=== PATIENT | male | born 1960 | race Caucasian/White ===

== ENCOUNTER 2019-05-28 08:37 | Inpatient (IN) | payer MEDICARE, MEDICAID ==
[~2019-05-28] VITALS: Ht 180.3 cm; Wt 111.7 kg
[~2019-05-28 08:37] MED LIST: ACET500T68 PO; AMOX1TAB11 PO; DULO30CA2 PO; Fluconazole PO; IBUP-1670 PO; INSU100V8 SQ; LACT1CAP19 PO; LINE600T12 PO
--- NOTE | 2019-05-28 09:12 | PHYS DOC ---
Past Medical History Past Medical History: Diabetes-Type II, Hypertension Additional Past Medical Histor: TBI 2014, L5 L4 S1 FUSION-2003 Past Surgical History: Other Additional Past Surgical Histo: R toes amputated, L great toe amputated, Lap Florentino, craniotomy, spinal fus Smoking Status: Never Smoker Alcohol Use: None Adult General Chief Complaint Chief Complaint: FOOT INJURY PAIN HPI HPI Patient is a 58 year old male who presents with was admitted here on 05/03/19 for cellulitis to the left 2nd toe and discharged on 05/06/19. Patient states over the last week the Left 2nd toe has gotten swollen, tender and the redness has increased. Patient rates his pain a 8/10. He has a history of HTN and is supposed to be taking Lisinopril but is not taking it. He also has a history of diabetes. He has all right toes amputated and the left great toe amputated. Review of Systems Review of Systems Integument: Left 2nd toe redness and swelling. Denies rash or skin lesions [] All other systems were reviewed and found to be within normal limits, except as documented in this note. Current Medications Current Medications Current Medications Medications (Trade) Dose Ordered Sig/Jose Start Time Stop Time Status Last Admin Dose Admin Ceftriaxone Sodium (Rocephin) 1 gm 1X ONCE 05/28/19 10:00 05/28/19 10:01 Fentanyl Citrate (Fentanyl 2ml Vial) 50 mcg 1X ONCE 05/28/19 09:30 05/28/19 09:31 DC 05/28/19 09:22 50 MCG Sodium Chloride 1,000 ml @ 1,000 mls/hr 1X ONCE 05/28/19 09:30 05/28/19 10:29 05/28/19 09:21 1,000 MLS/HR Vancomycin HCl (Vanco Per Pharmacy) 1 each PRN DAILY PRN 05/28/19 10:00 Vancomycin HCl 1.75 gm/Sodium Chloride 500 ml @ 250 mls/hr 1X ONCE 05/28/19 10:00 05/28/19 11:59 Allergies Allergies Allergies Coded Allergies Type Severity Reaction Last Updated Verified No Known Drug Allergies 05/03/19 No Physical Exam Physical Exam Constitutional: Well developed, well nourished, no acute distress, non-toxic appearance. [] HENT: Normocephalic, atraumatic, bilateral external ears normal, oropharynx moist, no oral exudates, nose normal. [] Eyes: PERRLA, EOMI, conjunctiva normal, no discharge. [] Neck: Normal range of motion, no tenderness, supple, no stridor. [] Cardiovascular:Heart rate regular rhythm, no murmur [] Lungs & Thorax: Bilateral breath sounds clear to auscultation [] Abdomen: Bowel sounds normal, soft, no tenderness, no masses, no pulsatile masses. [] Skin: Warm, dry. Left 2nd toe erythema, no rash. [] Back: No tenderness, no CVA tenderness. [] Extremities: Left 2nd toe tenderness, no cyanosis, no clubbing, ROM intact,Left foot 2+, Left 2nd toe 2+ edema. [] Neurologic: Alert and oriented X 3, normal motor function, normal sensory function, no focal deficits noted. [] Psychologic: Affect normal, judgement normal, mood normal. [] Current Patient Data Vital Signs Vital Signs Date Time Temp Pulse Resp B/P (MAP) Pulse Ox O2 Delivery O2 Flow Rate FiO2 05/28/19 09:22 16 05/28/19 08:54 98.8 78 183/83 (116) 97 Room Air 98.8 Lab Values Laboratory Tests Test 05/28/19 09:18 White Blood Count 7.0 x10^3/uL (4.0-11.0) Red Blood Count 5.13 x10^6/uL (4.30-5.70) Hemoglobin 14.4 g/dL (13.0-17.5) Hematocrit 42.9 % (39.0-53.0) Mean Corpuscular Volume 84 fL (79-100) Mean Corpuscular Hemoglobin 28 pg (25-35) Mean Corpuscular Hemoglobin Concent 34 g/dL (31-37) Red Cell Distribution Width 15.7 % (11.5-14.5) H Platelet Count 176 x10^3/uL (140-400) Neutrophils (%) (Auto) 58 % (31-73) Lymphocytes (%) (Auto) 32 % (24-48) Monocytes (%) (Auto) 9 % (0-9) Eosinophils (%) (Auto) 1 % (0-3) Basophils (%) (Auto) 1 % (0-3) Neutrophils # (Auto) 4.1 x10^3/uL (1.8-7.7) Lymphocytes # (Auto) 2.2 x10^3/uL (1.0-4.8) Monocytes # (Auto) 0.6 x10^3/uL (0.0-1.1) Eosinophils # (Auto) 0.1 x10^3/uL (0.0-0.7) Basophils # (Auto) 0.1 x10^3/uL (0.0-0.2) Sodium Level 137 mmol/L (136-145) Potassium Level 3.9 mmol/L (3.5-5.1) Chloride Level 102 mmol/L (98-107) Carbon Dioxide Level 25 mmol/L (21-32) Anion Gap 10 (6-14) Blood Urea Nitrogen 21 mg/dL (8-26) Creatinine 1.1 mg/dL (0.7-1.3) Estimated GFR (Cockcroft-Gault) 69.0 BUN/Creatinine Ratio 19 (6-20) Glucose Level 163 mg/dL (70-99) H Calcium Level 8.7 mg/dL (8.5-10.1) Total Bilirubin Pending Aspartate Amino Transferase (AST) Pending Alanine Aminotransferase (ALT) Pending Alkaline Phosphatase Pending Total Protein Pending Albumin Pending Albumin/Globulin Ratio Pending Laboratory Tests 05/28/19 09:18 Laboratory Tests 05/28/19 09:18 EKG EKG [] Radiology/Procedures Radiology/Procedures [] Impressions: [facility] [address] [place], [place] [id number] IMAGING REPORT Signed PATIENT: LALITHA CASTELLON ACCOUNT: [id number] : 1960 LOCATION: ER AGE: 58 SEX: M EXAM STATUS: REG ER ORD. PHYSICIAN: DEB GILES APRN REASON: left 2nd to swelling and cellulitis PROCEDURE: FOOT LEFT 3V Study: FOOT LEFT 3V Indication: Swelling and cellulitis. Comparison: 05/03/2019 Findings: Redemonstrated second MTP joint dislocation with dorsal and proximal displacement of the second toe phalanges relative to the metatarsal. The degree of phalangeal displacement has slightly progressed. More pronounced deformity at the second through fourth metatarsal heads as well as development of periosteal new bone formation involving the second toe proximal phalanx, second metatarsal and third metatarsal and to a lesser degree the fourth metatarsal. Redemonstrated mineralization adjacent to the head of the first metatarsal in the setting of great toe phalangeal amputation. Edematous soft tissues throughout the foot and extending up the lower leg that has in general progressed. Irregular lucencies in regions of the distal forefoot could represent ulcerative change. Impression: 1. Worsened appearance of the foot from 05/03/2019 with manifestations of osteomyelitis involving the second toe proximal phalanx and second through fourth metatarsals. This includes periosteal new bone formation and osseous destruction at the second through fourth metatarsal heads. 2. Slightly more pronounced degree of dorsal/proximal dislocation across the second MTP joint. 3. Status post great toe phalangeal amputation without radiographic findings of osteomyelitis of the first metatarsal. 4. Edematous soft tissues throughout the foot and extending up the lower leg. Potential superimposed regions of ulceration such as at the distal forefoot. Electronically signed by: BRIANNA WOOD MD (05/28/2019 9:32 AM) [facility] [place] and SIGNED BY: BRIANNA WOOD MD DATE: 05/28/19 0932 Course & Med Decision Making Course & Med Decision Making Pertinent Labs and Imaging studies reviewed. (See chart for details) Patient denies fever, nausea, vomiting, abdominal pain, headache, dizziness, chest pain, soa, new numbness or tingling, vision changes, diarrhea. Alert and oriented. Speaks in full clear sentences. Left 2nd toe is 2+ swollen and red. No open sore. The foot itself is 2+ swollen but normal skin color. Pedal pulse strong and present. Patient to be readmitted for worsening of conditioning as explained below in Xray read. Impression: 1. Worsened appearance of the foot from 05/03/2019 with manifestations of osteomyelitis involving the second toe proximal phalanx and second through fourth metatarsals. This includes periosteal new bone formation and osseous destruction at the second through fourth metatarsal heads. 2. Slightly more pronounced degree of dorsal/proximal dislocation across the second MTP joint. 3. Status post great toe phalangeal amputation without radiographic findings of osteomyelitis of the first metatarsal. 4. Edematous soft tissues throughout the foot and extending up the lower leg. Potential superimposed regions of ulceration such as at the distal forefoot. []Patient admitted by Dr Lazaro. Jamel Disclaimer Jamel Disclaimer This electronic medical record was generated, in whole or in part, using a voice recognition dictation system. Departure Departure Impression: Primary Impression: Cellulitis Additional Impression: Osteomyelitis Disposition: 09 ADMITTED INPATIENT Admitting Physician: BONITA Condition: STABLE Referrals: NO PCP (PCP) Problem Qualifiers Primary Impression: Cellulitis Site of cellulitis: extremity Site of cellulitis of extremity: toe Laterality: left Qualified Codes: L03.032 - Cellulitis of left toe Additional Impression: Osteomyelitis Osteomyelitis type: other acute Osteomyelitis location: foot Laterality: left Qualified Codes: M86.172 - Other acute osteomyelitis, left ankle and foot DEB GILES APRN May 28, 2019 09:11
[2019-05-28 09:26] LABS: BASO # 0.1 x10^3/uL (0.0-0.2); BASO % 1 % (0-3); EOS # 0.1 x10^3/uL (0.0-0.7); EOS % 1 % (0-3); HEMATOCRIT 42.9 % (39.0-53.0); HEMOGLOBIN 14.4 g/dL (13.0-17.5); LYMPH # 2.2 x10^3/uL (1.0-4.8); LYMPH % 32 % (24-48); MEAN CORPUSCULAR HEMOGLOBIN 28 pg (25-35); MEAN CORPUSCULAR HGB CONC 34 g/dL (31-37); MEAN CORPUSCULAR VOLUME 84 fL (79-100); MONO # 0.6 x10^3/uL (0.0-1.1); MONO % 9 % (0-9); NEUT # 4.1 x10^3/uL (1.8-7.7); NEUT % 58 % (31-73); PLATELET COUNT 176 x10^3/uL (140-400); RED BLOOD COUNT 5.13 x10^6/uL (4.30-5.70); RED CELL DISTRIBUTION WIDTH 15.7 % (11.5-14.5)
[2019-05-28] MEDS ORDERED: fentaNYL PF VIAL 100 MCG/2 ML VIAL IVP ONE ×2 (09:30→10:30)
[2019-05-28] MEDS ORDERED: IV NORMAL SALINE 1000ML BAG 1,000 ML IV ONE (09:30)
--- NOTE | 2019-05-28 09:35 | RAD ---
Study: FOOT LEFT 3V Indication: Swelling and cellulitis. Comparison: 05/03/2019 Findings: Redemonstrated second MTP joint dislocation with dorsal and proximal displacement of the second toe phalanges relative to the metatarsal. The degree of phalangeal displacement has slightly progressed. More pronounced deformity at the second through fourth metatarsal heads as well as development of periosteal new bone formation involving the second toe proximal phalanx, second metatarsal and third metatarsal and to a lesser degree the fourth metatarsal. Redemonstrated mineralization adjacent to the head of the first metatarsal in the setting of great toe phalangeal amputation. Edematous soft tissues throughout the foot and extending up the lower leg that has in general progressed. Irregular lucencies in regions of the distal forefoot could represent ulcerative change. Impression: 1. Worsened appearance of the foot from 05/03/2019 with manifestations of osteomyelitis involving the second toe proximal phalanx and second through fourth metatarsals. This includes periosteal new bone formation and osseous destruction at the second through fourth metatarsal heads. 2. Slightly more pronounced degree of dorsal/proximal dislocation across the second MTP joint. 3. Status post great toe phalangeal amputation without radiographic findings of osteomyelitis of the first metatarsal. 4. Edematous soft tissues throughout the foot and extending up the lower leg. Potential superimposed regions of ulceration such as at the distal forefoot. Electronically signed by: BRIANNA WOOD MD (05/28/2019 9:32 AM) [facility]
[2019-05-28 09:39] LABS: CALCIUM 8.7 mg/dL (8.5-10.1); CREATININE 1.1 mg/dL (0.7-1.3); POTASSIUM 3.9 mmol/L (3.5-5.1)
[2019-05-28 09:55] LABS: ALBUMIN 3.5 g/dL (3.4-5.0); ALBUMIN/GLOBULIN RATIO 0.9 (1.0-1.7); TOTAL BILIRUBIN 0.3 mg/dL (0.2-1.0); TOTAL PROTEIN 7.4 g/dL (6.4-8.2)
[2019-05-28] MEDS ORDERED: VANCOMYCIN 1.75 GM in IV NORMAL SALINE 500ML BAG 500 ML IV ONE (10:00)
[2019-05-28] MEDS ORDERED: cefTRIAXone IV Push 1 GM VIAL. IVP ONE (10:00)
[2019-05-28] MEDS ORDERED: ONDANSETRON PF 4 MG/2 ML VIAL. IV PRN (10:15)
[2019-05-28] MEDS: fentaNYL PF VIAL 100 MCG/2 ML VIAL IV PRN ×3 (11:09→17:36)
[2019-05-28] MEDS: VANCOMYCIN PER PHARMACY MC PRN ×2 (13:25→13:36)
--- NOTE | 2019-05-28 13:38 | NUR ---
Pharmacy Vancomycin Dosing Note S:Consulted to monitor and dose vancomycin started 05/28/19. O:LALITHA CASTELLON is a 58 year old M with Cellulitis Osteomyelitis . Height: 5 feet, 11 inches Weight: 70.0 kg [place] Body Weight: 75.30 Adjusted Body Weight: 73.18 Dosing Weight: Actual Other Antibiotics: X1 dose of Rocephin in ER LABS: Last BUN: 21 Last Creatinine: 1.1 Creatinine Clearance: 73 mL/min Last WBC: 7.0 Last Procalcitonin: Tmax (past 24 hours): 98.8 Microbiology: I/O: Drug Levels: Last level: on at Last dose given 05/28/19 at 0957 Vancomycin Dosing: Loading Dose: 1750 mg x1 Dosing Weight: Actual Target Trough: 15-20 A: Based on weight and est. CrCl: P: 1. Start Vancomycin 1750mg bolus, followed by Vancomycin 1000 mg IV q12h. 2. Follow up Trough level on 05/29/19 at 2130. 3. Pharmacy will continue to monitor, follow and adjust therapy as needed. Ye Chong [facility] [place], 05/28/19 [id number]
--- NOTE | 2019-05-28 13:58 | PDOC2 ---
CONSULT Date of Consult Date of Consult DATE: 05/28/19 TIME: 13:54 Reason for Consult Reason for Consult: Left foot possible osteomyelitis Identification/Chief Complaint Chief Complaint Left foot swelling and redness Source Source: Chart review, Patient History of Present Illness Reason for Visit: This 58-year-old man was admitted to the hospital last month with left foot swelling and erythema. Based on his history previously which I will copy below, I suspected a Charcot foot. He has not yet obtained the [place] walker and said he had difficulty scheduling follow-up with our office so he made an appointment with a different doctor and has not yet had that appointment. Of note he was diagnosed in 2019 with diabetes, and had some underlying neuropathy related to spine surgery. On the right foot, he was living in [place], and had an open wound on the right foot with osteomyelitis, and ultimately required 4 surgeries on the right foot, ultimately having a right trans metatarsal amputation. He said the doctor for that was a female orthopedic surgeon of [place] background, in [place], [place] near [place]. I believe she is also the surgeon who did the left great toe amputation. He relates that the symptoms on the right foot were much different than the current ones on the left foot, and that the left foot has never had an open wound or other dramatic evidence of infection. He was admitted with suspicion of infection and osteomyelitis of multiple metatarsal heads based on x-ray report. My notes from April admission: This 58-year-old man who was admitted to the hospital with left foot swelling and pain. He was diagnosed with type 2 diabetes 4 months ago, and required a left great toe amputation at that time due to osteomyelitis. That surgery was done in [place], but he has recently moved to [place]. He reports neuropathy which predates the diagnosis of diabetes, and he began having lower extremity symptoms and neuropathy problems after lumbar spine fusion surgery in 2003. He reports a work injury in 2002 with spinal damage, and says he had lumbar fusion [id number] in 2003 after which he had some numbness in his feet. The left foot became increasingly swollen and red recently, possible infection, and he was admitted for care. After the discussion with him, and we reviewed the severe neuropathy, I was suspicious of a Charcot foot. I reviewed some photos from [employer] of a Charcot foot with him, and he agrees this seems like a likely source of his swelling redness and other foot symptoms. Past Medical History Cardiovascular: No pertinent hx Pulmonary: No pertinent hx GI: No pertinent hx Heme/Onc: No pertinent hx Hepatobiliary: No pertinent hx Psych: No pertinent hx Rheumatologic: No pertinent hx Infectious disease: No pertinent hx Renal/: No pertinent hx Endocrine: Diabetes Past Surgical History Past Surgical History: Arthroscopy Family History Family History: Diabetes, High Cholestrol, Hypertension Social History ALCOHOL: none Drugs: Heroin Current Problem List Problem List Problems Medical Problems: (1) Cellulitis Status: Acute (2) Osteomyelitis Status: Acute Current Medications Current Medications Current Medications Sodium Chloride 1,000 ml @ 1,000 mls/hr 1X ONCE IV Last administered on 05/28/19at 09:21; Start 05/28/19 at 09:30; Stop 05/28/19 at 10:29; Status DC Fentanyl Citrate (Fentanyl 2ml Vial) 50 mcg 1X ONCE IVP Last administered on 05/28/19at 09:22; Start 05/28/19 at 09:30; Stop 05/28/19 at 09:31; Status DC Vancomycin HCl (Vanco Per Pharmacy) 1 each PRN DAILY PRN MC SEE COMMENTS Last administered on 05/28/19at 13:36; Start 05/28/19 at 10:00 Ceftriaxone Sodium (Rocephin) 1 gm 1X ONCE IVP Last administered on 05/28/19at 09:57; Start 05/28/19 at 10:00; Stop 05/28/19 at 10:01; Status DC Vancomycin HCl 1.75 gm/Sodium Chloride 500 ml @ 250 mls/hr 1X ONCE IV Last administered on 05/28/19at 09:57; Start 05/28/19 at 10:00; Stop 05/28/19 at 11:59; Status DC Fentanyl Citrate (Fentanyl 2ml Vial) 50 mcg 1X ONCE IVP Last administered on 05/28/19at 10:10; Start 05/28/19 at 10:30; Stop 05/28/19 at 10:31; Status DC Ondansetron HCl (Zofran) 4 mg PRN Q8HRS PRN IV NAUSEA/VOMITING Last administered on 05/28/19at 11:09; Start 05/28/19 at 10:15; Stop 05/29/19 at 10:14 Fentanyl Citrate (Fentanyl 2ml Vial) 50 mcg PRN Q1HR PRN IV PAIN Last administered on 05/28/19at 12:44; Start 05/28/19 at 10:15; Stop 05/29/19 at 10:14 Oxycodone/ Acetaminophen (Percocet 10/325) 1 tab PRN Q4HRS PRN PO SEVERE PAIN; Start 05/28/19 at 13:30 Vancomycin HCl 1 gm/Sodium Chloride 250 ml @ 250 mls/hr Q12H IV ; Start 05/28/19 at 22:00 Vancomycin HCl (Vancomycin Trough Level) 1 each 1X ONCE MC ; Start 05/29/19 at 21:30; Stop 05/29/19 at 21:31 Active Scripts Active Lantus (Insulin Glargine,Hum.rec.anlog) 100 Unit/1 Ml Vial 10 Unit SQ QHS 30 Days Culturelle (Lactobacillus Rhamnosus Gg) 1 Each Cap.sprink 1 Cap PO BID 30 Days Cymbalta (Duloxetine Hcl) 30 Mg Capsule.dr 30 Mg PO DAILY 30 Days Acetaminophen 500 Mg Tablet 500 Mg PO PRN Q6HRS PRN 10 Days Ibuprofen 200 Mg Tablet 600 Mg PO PRN Q6HRS PRN 10 Days [Fluconazole] 100 MG Tablet 200 Mg PO DAILY 7 Days Zyvox (Linezolid) 600 Mg Tablet 600 Mg PO BID 7 Days Amox Tr-K Clv 875-125 Mg Tab (Amoxicillin/Potassium Clav) 1 Each Tablet 1 Tab PO BID 10 Days Allergies Allergies: Coded Allergies: No Known Drug Allergies (Unverified , 05/03/19) Physical Exam General: Alert, Cooperative HEENT: Atraumatic Lungs: Normal air movement Heart: Regular rate Abdomen: Soft Extremities: Other (the right foot has a well-healed transmetatarsal amputation with no erythema or drainage. There is a plantar callus with a little bit of eschar but there is no open wound or drainage, and no erythema. He has decreased sensation. On the left foot there is a well-healed great toe amputation. There is no open wound. Minimal erythema. Diffuse swelling of the foot and now some swelling at the ankle. He has nearly insensate foot due to neuropathy and spine injury, such difficult to tell if there is tenderness but he describes general deep ache. The second toe is swollen, consistent with a neuropathic dislocation but there is no sensation of dislocation based on his examination and history. (Most patients with a dislocated toe would have exruciating pain and recall a specific injury--he has neither of those, indicitave of neuorpathic dislocation, i.e. Charcot dislocation). ) Skin: No significant lesion Neuro: Normal speech, Other (severe decreased sensation. Pulses normal. No ischemia. Let foot is warm compared to right.) Psych/Mental Status: Mood NL Vitals VITALS Vital Signs Date Time Temp Pulse Resp B/P (MAP) Pulse Ox O2 Delivery O2 Flow Rate FiO2 05/28/19 12:44 95 05/28/19 11:35 16 05/28/19 11:10 67 165/80 (108) 05/28/19 10:09 Room Air 05/28/19 08:54 98.8 98.8 Labs Labs Laboratory Tests Test 05/28/19 09:18 05/28/19 11:58 White Blood Count 7.0 x10^3/uL (4.0-11.0) Red Blood Count 5.13 x10^6/uL (4.30-5.70) Hemoglobin 14.4 g/dL (13.0-17.5) Hematocrit 42.9 % (39.0-53.0) Mean Corpuscular Volume 84 fL (79-100) Mean Corpuscular Hemoglobin 28 pg (25-35) Mean Corpuscular Hemoglobin Concent 34 g/dL (31-37) Red Cell Distribution Width 15.7 % (11.5-14.5) Platelet Count 176 x10^3/uL (140-400) Neutrophils (%) (Auto) 58 % (31-73) Lymphocytes (%) (Auto) 32 % (24-48) Monocytes (%) (Auto) 9 % (0-9) Eosinophils (%) (Auto) 1 % (0-3) Basophils (%) (Auto) 1 % (0-3) Neutrophils # (Auto) 4.1 x10^3/uL (1.8-7.7) Lymphocytes # (Auto) 2.2 x10^3/uL (1.0-4.8) Monocytes # (Auto) 0.6 x10^3/uL (0.0-1.1) Eosinophils # (Auto) 0.1 x10^3/uL (0.0-0.7) Basophils # (Auto) 0.1 x10^3/uL (0.0-0.2) Sodium Level 137 mmol/L (136-145) Potassium Level 3.9 mmol/L (3.5-5.1) Chloride Level 102 mmol/L (98-107) Carbon Dioxide Level 25 mmol/L (21-32) Anion Gap 10 (6-14) Blood Urea Nitrogen 21 mg/dL (8-26) Creatinine 1.1 mg/dL (0.7-1.3) Estimated GFR (Cockcroft-Gault) 69.0 BUN/Creatinine Ratio 19 (6-20) Glucose Level 163 mg/dL (70-99) Lactic Acid Level 1.5 mmol/L (0.4-2.0) Calcium Level 8.7 mg/dL (8.5-10.1) Total Bilirubin 0.3 mg/dL (0.2-1.0) Aspartate Amino Transf (AST/SGOT) 27 U/L (15-37) Alanine Aminotransferase (ALT/SGPT) 54 U/L (16-63) Alkaline Phosphatase 148 U/L (46-116) Total Protein 7.4 g/dL (6.4-8.2) Albumin 3.5 g/dL (3.4-5.0) Albumin/Globulin Ratio 0.9 (1.0-1.7) Glucose (Fingerstick) 189 mg/dL (70-99) Laboratory Tests Test 05/28/19 09:18 05/28/19 11:58 White Blood Count 7.0 x10^3/uL (4.0-11.0) Red Blood Count 5.13 x10^6/uL (4.30-5.70) Hemoglobin 14.4 g/dL (13.0-17.5) Hematocrit 42.9 % (39.0-53.0) Mean Corpuscular Volume 84 fL (79-100) Mean Corpuscular Hemoglobin 28 pg (25-35) Mean Corpuscular Hemoglobin Concent 34 g/dL (31-37) Red Cell Distribution Width 15.7 % (11.5-14.5) Platelet Count 176 x10^3/uL (140-400) Neutrophils (%) (Auto) 58 % (31-73) Lymphocytes (%) (Auto) 32 % (24-48) Monocytes (%) (Auto) 9 % (0-9) Eosinophils (%) (Auto) 1 % (0-3) Basophils (%) (Auto) 1 % (0-3) Neutrophils # (Auto) 4.1 x10^3/uL (1.8-7.7) Lymphocytes # (Auto) 2.2 x10^3/uL (1.0-4.8) Monocytes # (Auto) 0.6 x10^3/uL (0.0-1.1) Eosinophils # (Auto) 0.1 x10^3/uL (0.0-0.7) Basophils # (Auto) 0.1 x10^3/uL (0.0-0.2) Sodium Level 137 mmol/L (136-145) Potassium Level 3.9 mmol/L (3.5-5.1) Chloride Level 102 mmol/L (98-107) Carbon Dioxide Level 25 mmol/L (21-32) Anion Gap 10 (6-14) Blood Urea Nitrogen 21 mg/dL (8-26) Creatinine 1.1 mg/dL (0.7-1.3) Estimated GFR (Cockcroft-Gault) 69.0 BUN/Creatinine Ratio 19 (6-20) Glucose Level 163 mg/dL (70-99) Lactic Acid Level 1.5 mmol/L (0.4-2.0) Calcium Level 8.7 mg/dL (8.5-10.1) Total Bilirubin 0.3 mg/dL (0.2-1.0) Aspartate Amino Transf (AST/SGOT) 27 U/L (15-37) Alanine Aminotransferase (ALT/SGPT) 54 U/L (16-63) Alkaline Phosphatase 148 U/L (46-116) Total Protein 7.4 g/dL (6.4-8.2) Albumin 3.5 g/dL (3.4-5.0) Albumin/Globulin Ratio 0.9 (1.0-1.7) Glucose (Fingerstick) 189 mg/dL (70-99) Images Images Report reviewed, images independently reviewed. I agree there are some differences in bone density of the metatarsals compared to last month. The discocated 2nd MTPJ persists. PATIENT: LALITHA CASTELLON ACCOUNT: [id number] : 1960 LOCATION: ER AGE: 58 SEX: M EXAM STATUS: REG ER ORD. PHYSICIAN: DEB GILES APRN REASON: left 2nd to swelling and cellulitis PROCEDURE: FOOT LEFT 3V Study: FOOT LEFT 3V Indication: Swelling and cellulitis. Comparison: 05/03/2019 Findings: Redemonstrated second MTP joint dislocation with dorsal and proximal displacement of the second toe phalanges relative to the metatarsal. The degree of phalangeal displacement has slightly progressed. More pronounced deformity at the second through fourth metatarsal heads as well as development of periosteal new bone formation involving the second toe proximal phalanx, second metatarsal and third metatarsal and to a lesser degree the fourth metatarsal. Redemonstrated mineralization adjacent to the head of the first metatarsal in the setting of great toe phalangeal amputation. Edematous soft tissues throughout the foot and extending up the lower leg that has in general progressed. Irregular lucencies in regions of the distal forefoot could represent ulcerative change. Impression: 1. Worsened appearance of the foot from 05/03/2019 with manifestations of osteomyelitis involving the second toe proximal phalanx and second through fourth metatarsals. This includes periosteal new bone formation and osseous destruction at the second through fourth metatarsal heads. 2. Slightly more pronounced degree of dorsal/proximal dislocation across the second MTP joint. 3. Status post great toe phalangeal amputation without radiographic findings of osteomyelitis of the first metatarsal. 4. Edematous soft tissues throughout the foot and extending up the lower leg. Potential superimposed regions of ulceration such as at the distal forefoot. Electronically signed by: BRIANNA WOOD MD (05/28/2019 9:32 AM) [facility] DICTATED and SIGNED BY: BRIANNA WOOD MD DATE: 05/28/19 0932 Assessment/Plan Assessment/Plan Left foot swelling. Radiographs suspicious for osteomyelitis. My impression is that he has a Charcot foot without osteomyelitis. This is his second admission for this same left foot problem. I recommended MRI left foot with and without IV contrast. I reviewed his case with Dr. Mensah who related that an MRI w/wo IV contrast would be helpful to differentiate osteomyelitis from Charcot foot. If the patient has osteomyelitis in the metatarsal heads I would consider a forefoot transmetatarsal amputation. If there is no osteomyelitis, nonoperative treatment is recommended with [place] walker, and other supportive care. I will also order CRP and ESR which are likely to be elevated with either diagnosis but the amount of elevation may indicate one diagnoses over the other. KIAH HIGUERA MD May 28, 2019 13:58
[2019-05-28] MEDS: oxyCODONE/APAP 10/325 1 TAB TABLET PO PRN ×2 (14:28→19:38)
[2019-05-28 15:00] VITALS: BP 145/63
[2019-05-28] MEDS ORDERED: LISI2.5T PO (15:07)
--- NOTE | 2019-05-28 16:10 | PDOC ---
Infectious Disease Note Vital Sign Vital Signs Vital Signs Date Time Temp Pulse Resp B/P (MAP) Pulse Ox O2 Delivery O2 Flow Rate FiO2 05/28/19 14:29 95 05/28/19 11:35 16 05/28/19 11:10 67 165/80 (108) 05/28/19 10:09 Room Air 05/28/19 08:54 98.8 98.8 Labs Lab Laboratory Tests Test 05/28/19 09:18 05/28/19 11:58 White Blood Count 7.0 x10^3/uL (4.0-11.0) Red Blood Count 5.13 x10^6/uL (4.30-5.70) Hemoglobin 14.4 g/dL (13.0-17.5) Hematocrit 42.9 % (39.0-53.0) Mean Corpuscular Volume 84 fL (79-100) Mean Corpuscular Hemoglobin 28 pg (25-35) Mean Corpuscular Hemoglobin Concent 34 g/dL (31-37) Red Cell Distribution Width 15.7 % (11.5-14.5) Platelet Count 176 x10^3/uL (140-400) Neutrophils (%) (Auto) 58 % (31-73) Lymphocytes (%) (Auto) 32 % (24-48) Monocytes (%) (Auto) 9 % (0-9) Eosinophils (%) (Auto) 1 % (0-3) Basophils (%) (Auto) 1 % (0-3) Neutrophils # (Auto) 4.1 x10^3/uL (1.8-7.7) Lymphocytes # (Auto) 2.2 x10^3/uL (1.0-4.8) Monocytes # (Auto) 0.6 x10^3/uL (0.0-1.1) Eosinophils # (Auto) 0.1 x10^3/uL (0.0-0.7) Basophils # (Auto) 0.1 x10^3/uL (0.0-0.2) Sodium Level 137 mmol/L (136-145) Potassium Level 3.9 mmol/L (3.5-5.1) Chloride Level 102 mmol/L (98-107) Carbon Dioxide Level 25 mmol/L (21-32) Anion Gap 10 (6-14) Blood Urea Nitrogen 21 mg/dL (8-26) Creatinine 1.1 mg/dL (0.7-1.3) Estimated GFR (Cockcroft-Gault) 69.0 BUN/Creatinine Ratio 19 (6-20) Glucose Level 163 mg/dL (70-99) Lactic Acid Level 1.5 mmol/L (0.4-2.0) Calcium Level 8.7 mg/dL (8.5-10.1) Total Bilirubin 0.3 mg/dL (0.2-1.0) Aspartate Amino Transf (AST/SGOT) 27 U/L (15-37) Alanine Aminotransferase (ALT/SGPT) 54 U/L (16-63) Alkaline Phosphatase 148 U/L (46-116) Total Protein 7.4 g/dL (6.4-8.2) Albumin 3.5 g/dL (3.4-5.0) Albumin/Globulin Ratio 0.9 (1.0-1.7) Glucose (Fingerstick) 189 mg/dL (70-99) Objective Assessment Cellulitis left 2nd toe Charcot foot Nonhealing ulcer right foot Diabetes with peripheral neuropathy h/o MRSA Plan Plan of Care Continue antibiotics Monitor renal function closely f/u [facility] Ortho following MRI has been ordered left foot Local wound care right foot ESR D/w nursing D/w Dr. Vaughn Thank you [id number] Patient seen and examined. Chart reviewed in detail. Case discussed with [employer]. I agree with above plan. ELOINA CALDWELL APRN May 28, 2019 16:10 ANETA LAL MD May 28, 2019 19:20
--- NOTE | 2019-05-28 17:31 | CONS ---
DATE OF CONSULTATION: 05/28/2019 REFERRING PHYSICIAN: Gregorio Vaughn MD REASON FOR CONSULTATION: Osteomyelitis, left foot. HISTORY OF PRESENT ILLNESS: This patient is a 58-year-old male with a past medical history of diabetes, nonhealing foot ulcers and osteomyelitis, status post right transmetatarsal amputation and left great toe amputation in the past. Over the last month and a half, he has developed worsening pain, swelling and redness of left second toe. He has been unable to wear shoes. He denies injury. Denies fevers, chills, sweats or body aches. He was hospitalized last month here at [facility] for similar symptoms involving the left third toe. He was treated with Augmentin, fluconazole and Zyvox with improvement. An arterial duplex showed normal sonographic appearance of the major arteries of the left lower extremity. He was seen by Ortho service, who had recommended a [employer] [place] walker, but the patient says he has not gotten one yet. An x-ray of the left foot taken earlier today showed worsening appearance of the foot from 05/03 with manifestations of osteomyelitis involving the second toe proximal phalanx and second through fourth metatarsals. This includes periosteal new bone formation and osseous destruction at the second through fourth metatarsal heads. Slightly more pronounced degree of dorsal/proximal dislocation across the second MTP joint. Edematous soft tissues throughout the foot and extending at the lower leg. The patient has no open wounds on his left foot and a recent sed rate was 3 on 05/03. He is currently on vancomycin and ceftriaxone. PAST MEDICAL HISTORY: Diabetes, previous history of osteomyelitis of left great toe and several toes on his right foot, peripheral neuropathy, history of MRSA. PAST SURGICAL HISTORY: Subdural hematoma and craniotomy in 2013, L4-L5 fusion in 2004; Florentino fundoplication, right TMA in 2019, left great toe amputation, arthroscopy. FAMILY HISTORY: Diabetes, hyperlipidemia and hypertension. SOCIAL HISTORY: Lives in [place] for about 9 years and has moved back to [place] in 02/2019. History of IV drug use and alcohol abuse. Nonsmoker. ALLERGIES: No known drug allergies. MEDICATIONS: Vancomycin, ceftriaxone, fentanyl, ondansetron, Percocet. PHYSICAL EXAMINATION: VITAL SIGNS: Temperature 98.8, blood pressure 165/80, heart rate 67, respiratory rate 16 and pulse oximetry 95% on room air. BMI 21. GENERAL: The patient is propped up in bed, alert, no apparent distress. HEENT: Pupils equally round, oral cavity, pharynx clear. NECK: Supple. LUNGS: Clear to auscultation. HEART: S1, S2. ABDOMEN: Soft, nontender with bowel sounds present. EXTREMITIES: No gross edema or cyanosis. Previous right TMA. There is a small ulcer on the plantar aspect without signs of infection. The left second toe is swollen, mildly red. There are no open wounds. Distal pulses palpable. The third toenail is a dark. Previous left great toe amputation site is well healed. SKIN: Warm to touch without signs of rash. Multiple tattoos. NEUROLOGIC: Alert and oriented x 3. LABORATORY DATA: Today's WBC 7.0, hemoglobin 14.4, platelets 176,000. Previous sed rate from 05/03 was 3, creatinine 1.1, BUN 21. Electrolytes are unremarkable. Glucose 163. Lactic acid 1.5, total bilirubin 0.3, AST 27 and ALT 54. ASSESSMENT: 1. Cellulitis, left second toe. 2. Charcot's foot. 3. Nonhealing ulcer, right foot. 4. Diabetes with peripheral neuropathy. 5. History of methicillin-resistant Staphylococcus. PLAN: Continue the antibiotics for now. Ortho is following. An MRI has been ordered. Local wound care. Obtain sed rate in a.m. Follow up on blood cultures. Monitor renal function closely. Discussed with nursing. ANETA LAL MD DR: ANN/marquis JOB#: [id number] / [id number] KARINA
--- NOTE | 2019-05-28 18:26 | PDOC1 ---
History and Physical Date of Admission Date of Admission DATE: 05/28/19 TIME: 18:24 History of Present Illness History of Present Illness Patient is a 58 year old male who presents with was admitted here on 05/03/19 for cellulitis to the left 2nd toe and discharged on 05/06/19. Patient states over the last week the Left 2nd toe has gotten swollen, tender and the redness has increased. Patient rates his pain a 8/10. He has a history of HTN and is supposed to be taking Lisinopril but is not taking it. He also has a history of diabetes. He has all right toes amputated and the left great toe amputated. Past Medical History Cardiovascular: No pertinent hx Pulmonary: No pertinent hx GI: No pertinent hx Heme/Onc: No pertinent hx Hepatobiliary: No pertinent hx Psych: No pertinent hx Rheumatologic: No pertinent hx Infectious disease: No pertinent hx Renal/: No pertinent hx Endocrine: Diabetes Past Surgical History Past Surgical History: Arthroscopy Family History Family History: Diabetes, High Cholestrol, Hypertension Social History Smoke: No ALCOHOL: none Drugs: Heroin Current Problem List Problem List Problems Medical Problems: (1) Cellulitis Status: Acute (2) Osteomyelitis Status: Acute Current Medications Current Medications Current Medications Sodium Chloride 1,000 ml @ 1,000 mls/hr 1X ONCE IV Last administered on 05/28/19at 09:21; Start 05/28/19 at 09:30; Stop 05/28/19 at 10:29; Status DC Fentanyl Citrate (Fentanyl 2ml Vial) 50 mcg 1X ONCE IVP Last administered on 05/28/19at 09:22; Start 05/28/19 at 09:30; Stop 05/28/19 at 09:31; Status DC Vancomycin HCl (Vanco Per Pharmacy) 1 each PRN DAILY PRN MC SEE COMMENTS Last administered on 05/28/19at 13:36; Start 05/28/19 at 10:00 Ceftriaxone Sodium (Rocephin) 1 gm 1X ONCE IVP Last administered on 05/28/19at 09:57; Start 05/28/19 at 10:00; Stop 05/28/19 at 10:01; Status DC Vancomycin HCl 1.75 gm/Sodium Chloride 500 ml @ 250 mls/hr 1X ONCE IV Last administered on 05/28/19at 09:57; Start 05/28/19 at 10:00; Stop 05/28/19 at 11:59; Status DC Fentanyl Citrate (Fentanyl 2ml Vial) 50 mcg 1X ONCE IVP Last administered on 05/28/19at 10:10; Start 05/28/19 at 10:30; Stop 05/28/19 at 10:31; Status DC Ondansetron HCl (Zofran) 4 mg PRN Q8HRS PRN IV NAUSEA/VOMITING Last administered on 05/28/19at 11:09; Start 05/28/19 at 10:15; Stop 05/29/19 at 10:14 Fentanyl Citrate (Fentanyl 2ml Vial) 50 mcg PRN Q1HR PRN IV PAIN Last administered on 05/28/19at 17:36; Start 05/28/19 at 10:15; Stop 05/29/19 at 10:14 Oxycodone/ Acetaminophen (Percocet 10/325) 1 tab PRN Q4HRS PRN PO SEVERE PAIN Last administered on 05/28/19at 14:28; Start 05/28/19 at 13:30 Vancomycin HCl 1 gm/Sodium Chloride 250 ml @ 250 mls/hr Q12H IV ; Start 05/28/19 at 22:00 Vancomycin HCl (Vancomycin Trough Level) 1 each 1X ONCE MC ; Start 05/29/19 at 21:30; Stop 05/29/19 at 21:31 Active Scripts Active Reported Lisinopril 2.5 Mg Tablet 1 Tab PO DAILY Allergies Allergies: Coded Allergies: No Known Drug Allergies (Unverified , 05/03/19) ROS General: No: Chills, Night Sweats, Fatigue, Malaise, Appetite, Other PSYCHOLOGICAL ROS: No: Anxiety, Behavioral Disorder, Concentration difficultie, Decreased libido, Depression, Disorientation, Hallucinations, Hostility, Irritablity, Memory difficulties, Mood Swings, Obsessive thoughts, Physical abuse, Sexual abuse, Sleep disturbances, Suicidal ideation, Other Eyes: No Blurry vision, No Decreased vision, No Double vision, No Dry eyes, No Excessive tearing, No Eye Pain, No Itchy Eyes, No Loss of vision, No Photophobia, No Scotomata, No Uses contacts, No Uses glasses, No Other HEENT: No: Heacaches, Visual Changes, Hearing change, Nasal congestion, Nasal discharge, Oral lesions, Sinus pain, Sore Throat, Epistaxis, Sneezing, Snoring, Tinnitus, Vertigo, Vocal changes, Other Respiratory: No: Cough, Hemoptysis, Orthopnea, Pleuritic Pain, Shortness of breath, SOB with excertion, Sputum Changes, Stridor, Tachypnea, Wheezing, Other Cardiovascular: No Chest Pain, No Palpitations, No Orthopnea, No Paroxysmal Noc. Dyspnea, No Edema, No Lt Headedness, No Other Gastrointestinal: No Nausea, No Vomiting, No Abdominal Pain, No Diarrhea, No Constipation, No Melena, No Hematochezia, No Other Genitourinary: No Dysuria, No Frequency, No Incontinence, No Hematuria, No Retention, No Discharge, No Urgency, No Pain, No Flank Pain, No Other, No , No , No , No , No , No , No Musculoskeletal: Yes Gait Disturbance, Yes Joint Stiffness, Yes Joint Swelling Neurological: No Behavorial Changes, No Bowel/Bladder ControlChng, No Confusion, No Dizziness, No Headaches, No Impaired Coord/balance, No Memory Loss, No Numbness/Tingling, No Seizures, No Speech Problems, No Tremors, No Visual Changes, No Weakness, No Other Skin: Yes Dry Skin, Yes Rash, Yes Skin Lesion Changes Physical Exam General: Alert, Oriented X3, Cooperative, No acute distress HEENT: Atraumatic, EOMI, Mucous membr. moist/pink Lungs: Clear to auscultation, Normal air movement Heart: no gallops, no murmurs Abdomen: Normal bowel sounds, Soft Extremities: No cyanosis, No edema, Normal pulses Skin: No significant lesion, Other (toe is swollen and red and tender, p) Neuro: Normal speech, Normal tone, Cranial nerves 3-12 NL Vitals Vitals Vital Signs Date Time Temp Pulse Resp B/P (MAP) Pulse Ox O2 Delivery O2 Flow Rate FiO2 05/28/19 17:36 95 05/28/19 15:00 98.1 65 16 145/63 (90) Room Air 98.1 Labs Labs Laboratory Tests Test 05/28/19 09:18 05/28/19 11:58 05/28/19 16:50 White Blood Count 7.0 x10^3/uL (4.0-11.0) Red Blood Count 5.13 x10^6/uL (4.30-5.70) Hemoglobin 14.4 g/dL (13.0-17.5) Hematocrit 42.9 % (39.0-53.0) Mean Corpuscular Volume 84 fL (79-100) Mean Corpuscular Hemoglobin 28 pg (25-35) Mean Corpuscular Hemoglobin Concent 34 g/dL (31-37) Red Cell Distribution Width 15.7 % (11.5-14.5) Platelet Count 176 x10^3/uL (140-400) Neutrophils (%) (Auto) 58 % (31-73) Lymphocytes (%) (Auto) 32 % (24-48) Monocytes (%) (Auto) 9 % (0-9) Eosinophils (%) (Auto) 1 % (0-3) Basophils (%) (Auto) 1 % (0-3) Neutrophils # (Auto) 4.1 x10^3/uL (1.8-7.7) Lymphocytes # (Auto) 2.2 x10^3/uL (1.0-4.8) Monocytes # (Auto) 0.6 x10^3/uL (0.0-1.1) Eosinophils # (Auto) 0.1 x10^3/uL (0.0-0.7) Basophils # (Auto) 0.1 x10^3/uL (0.0-0.2) Sodium Level 137 mmol/L (136-145) Potassium Level 3.9 mmol/L (3.5-5.1) Chloride Level 102 mmol/L (98-107) Carbon Dioxide Level 25 mmol/L (21-32) Anion Gap 10 (6-14) Blood Urea Nitrogen 21 mg/dL (8-26) Creatinine 1.1 mg/dL (0.7-1.3) Estimated GFR (Cockcroft-Gault) 69.0 BUN/Creatinine Ratio 19 (6-20) Glucose Level 163 mg/dL (70-99) Lactic Acid Level 1.5 mmol/L (0.4-2.0) Calcium Level 8.7 mg/dL (8.5-10.1) Total Bilirubin 0.3 mg/dL (0.2-1.0) Aspartate Amino Transf (AST/SGOT) 27 U/L (15-37) Alanine Aminotransferase (ALT/SGPT) 54 U/L (16-63) Alkaline Phosphatase 148 U/L (46-116) Total Protein 7.4 g/dL (6.4-8.2) Albumin 3.5 g/dL (3.4-5.0) Albumin/Globulin Ratio 0.9 (1.0-1.7) Glucose (Fingerstick) 189 mg/dL (70-99) 150 mg/dL (70-99) Laboratory Tests Test 05/28/19 09:18 05/28/19 11:58 05/28/19 16:50 White Blood Count 7.0 x10^3/uL (4.0-11.0) Red Blood Count 5.13 x10^6/uL (4.30-5.70) Hemoglobin 14.4 g/dL (13.0-17.5) Hematocrit 42.9 % (39.0-53.0) Mean Corpuscular Volume 84 fL (79-100) Mean Corpuscular Hemoglobin 28 pg (25-35) Mean Corpuscular Hemoglobin Concent 34 g/dL (31-37) Red Cell Distribution Width 15.7 % (11.5-14.5) Platelet Count 176 x10^3/uL (140-400) Neutrophils (%) (Auto) 58 % (31-73) Lymphocytes (%) (Auto) 32 % (24-48) Monocytes (%) (Auto) 9 % (0-9) Eosinophils (%) (Auto) 1 % (0-3) Basophils (%) (Auto) 1 % (0-3) Neutrophils # (Auto) 4.1 x10^3/uL (1.8-7.7) Lymphocytes # (Auto) 2.2 x10^3/uL (1.0-4.8) Monocytes # (Auto) 0.6 x10^3/uL (0.0-1.1) Eosinophils # (Auto) 0.1 x10^3/uL (0.0-0.7) Basophils # (Auto) 0.1 x10^3/uL (0.0-0.2) Sodium Level 137 mmol/L (136-145) Potassium Level 3.9 mmol/L (3.5-5.1) Chloride Level 102 mmol/L (98-107) Carbon Dioxide Level 25 mmol/L (21-32) Anion Gap 10 (6-14) Blood Urea Nitrogen 21 mg/dL (8-26) Creatinine 1.1 mg/dL (0.7-1.3) Estimated GFR (Cockcroft-Gault) 69.0 BUN/Creatinine Ratio 19 (6-20) Glucose Level 163 mg/dL (70-99) Lactic Acid Level 1.5 mmol/L (0.4-2.0) Calcium Level 8.7 mg/dL (8.5-10.1) Total Bilirubin 0.3 mg/dL (0.2-1.0) Aspartate Amino Transf (AST/SGOT) 27 U/L (15-37) Alanine Aminotransferase (ALT/SGPT) 54 U/L (16-63) Alkaline Phosphatase 148 U/L (46-116) Total Protein 7.4 g/dL (6.4-8.2) Albumin 3.5 g/dL (3.4-5.0) Albumin/Globulin Ratio 0.9 (1.0-1.7) Glucose (Fingerstick) 189 mg/dL (70-99) 150 mg/dL (70-99) VTE Prophylaxis Ordered VTE Prophylaxis Devices: No VTE Pharmacological Prophylaxi: Yes Assessment/Plan Assessment/Plan left second toe swelling and redness. Hx osteomyellities, s/p osteo oste first toe, IV abx started, ID and ortho consult consider [place] toe. ROLAND ARELLANO MD May 28, 2019 18:26
[2019-05-28 19:00] VITALS: BP 141/65
[2019-05-28] MEDS ORDERED: VANCOMYCIN 1 GM in IV NORMAL SALINE 250ML 250 ML IV SCH (22:00)
[2019-05-28 23:00] VITALS: BP 129/80
[2019-05-29 03:00] VITALS: BP 135/73
[2019-05-29] MEDS: oxyCODONE/APAP 10/325 1 TAB TABLET PO PRN ×3 (05:56→17:23)
[2019-05-29 07:00] VITALS: BP 135/76
--- NOTE | 2019-05-29 08:14 | PDOC ---
PROGRESS NOTES Chief Complaint Chief Complaint A/P: Left foot cellulitis - 3rd toe. Given rocephin, will cont vancomycin, add gram negative coverage. Consult ID. Check left leg arterial dopplers Diabetic foot ulcer - will consult wound care for multiple ulcers. 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 Alcohol use disorder in remission - stable DM2 - will check a1c. Not on any meds currently. Will place on basal bolus plus regimen for now prior H/o TBI (2013) - some memory issues since Diabetic polyneuropathy - s/o multiple amputations. 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 Symptoms have worsened despite antibiotics (clindamycin followed by recent hospital stay and treated with Augmentin, fluconazole and Zyvox with improvement. An arterial duplex showed normal sonographic appearance of the major arteries of the left lower extremity. He was seen by Ortho service, who had recommended a [place] walker, but the patient says he has not gotten one yet. X-ray of the left foot taken on admit showed worsening appearance of the foot from 05/03 with manifestations of osteomyelitis involving the second toe proximal phalanx and second through fourth metatarsals. This includes periosteal new bone formation and osseous destruction at the second through fourth metatarsal heads. Slightly more pronounced degree of dorsal/proximal dislocation across the second MTP joint. Edematous soft tissues throughout the foot and extending at the lower leg. The patient has no open wounds on his left foot and a recent sed rate was 3 on 05/03. Started empirically on vancomycin and ceftriaxone, seen by orthopedic surgery and infectious disease in consultation. He is feeling better today. no clinical evidence for osteo, all reported is charcots deformity MRI can be done out pt change antibiotics to po . Vitals Vitals Vital Signs Date Time Temp Pulse Resp B/P (MAP) Pulse Ox O2 Delivery O2 Flow Rate FiO2 05/29/19 06:57 14 96 Room Air 05/29/19 03:00 97.6 63 135/73 (93) 97.6 Physical Exam General: Alert, Oriented X3, Cooperative, No acute distress Heart: Regular rate Lungs: Clear Abdomen: Normal bowel sounds, Soft Extremities: No cyanosis, No edema, Normal pulses Skin: No significant lesion, Other (toe is swollen and red and tender, p) Labs LABS Laboratory Tests Test 05/28/19 09:18 05/28/19 11:58 05/28/19 16:50 05/28/19 20:20 White Blood Count 7.0 x10^3/uL (4.0-11.0) Red Blood Count 5.13 x10^6/uL (4.30-5.70) Hemoglobin 14.4 g/dL (13.0-17.5) Hematocrit 42.9 % (39.0-53.0) Mean Corpuscular Volume 84 fL (79-100) Mean Corpuscular Hemoglobin 28 pg (25-35) Mean Corpuscular Hemoglobin Concent 34 g/dL (31-37) Red Cell Distribution Width 15.7 % (11.5-14.5) Platelet Count 176 x10^3/uL (140-400) Neutrophils (%) (Auto) 58 % (31-73) Lymphocytes (%) (Auto) 32 % (24-48) Monocytes (%) (Auto) 9 % (0-9) Eosinophils (%) (Auto) 1 % (0-3) Basophils (%) (Auto) 1 % (0-3) Neutrophils # (Auto) 4.1 x10^3/uL (1.8-7.7) Lymphocytes # (Auto) 2.2 x10^3/uL (1.0-4.8) Monocytes # (Auto) 0.6 x10^3/uL (0.0-1.1) Eosinophils # (Auto) 0.1 x10^3/uL (0.0-0.7) Basophils # (Auto) 0.1 x10^3/uL (0.0-0.2) Sodium Level 137 mmol/L (136-145) Potassium Level 3.9 mmol/L (3.5-5.1) Chloride Level 102 mmol/L (98-107) Carbon Dioxide Level 25 mmol/L (21-32) Anion Gap 10 (6-14) Blood Urea Nitrogen 21 mg/dL (8-26) Creatinine 1.1 mg/dL (0.7-1.3) Estimated GFR (Cockcroft-Gault) 69.0 BUN/Creatinine Ratio 19 (6-20) Glucose Level 163 mg/dL (70-99) Lactic Acid Level 1.5 mmol/L (0.4-2.0) Calcium Level 8.7 mg/dL (8.5-10.1) Total Bilirubin 0.3 mg/dL (0.2-1.0) Aspartate Amino Transf (AST/SGOT) 27 U/L (15-37) Alanine Aminotransferase (ALT/SGPT) 54 U/L (16-63) Alkaline Phosphatase 148 U/L (46-116) Total Protein 7.4 g/dL (6.4-8.2) Albumin 3.5 g/dL (3.4-5.0) Albumin/Globulin Ratio 0.9 (1.0-1.7) Glucose (Fingerstick) 189 mg/dL (70-99) 150 mg/dL (70-99) 146 mg/dL (70-99) Test 05/29/19 02:40 05/29/19 07:45 Erythrocyte Sedimentation Rate 10 (0-15) Glucose (Fingerstick) 154 mg/dL (70-99) Assessment and Plan Assessmemt and Plan Problems Medical Problems: (1) Cellulitis Status: Acute (2) Osteomyelitis Status: Acute Comment Review of Relevant I have reviewed the following items kathy (where applicable) has been applied. Labs Laboratory Tests Test 05/28/19 09:18 05/28/19 11:58 05/28/19 16:50 05/28/19 20:20 White Blood Count 7.0 x10^3/uL (4.0-11.0) Red Blood Count 5.13 x10^6/uL (4.30-5.70) Hemoglobin 14.4 g/dL (13.0-17.5) Hematocrit 42.9 % (39.0-53.0) Mean Corpuscular Volume 84 fL (79-100) Mean Corpuscular Hemoglobin 28 pg (25-35) Mean Corpuscular Hemoglobin Concent 34 g/dL (31-37) Red Cell Distribution Width 15.7 % (11.5-14.5) Platelet Count 176 x10^3/uL (140-400) Neutrophils (%) (Auto) 58 % (31-73) Lymphocytes (%) (Auto) 32 % (24-48) Monocytes (%) (Auto) 9 % (0-9) Eosinophils (%) (Auto) 1 % (0-3) Basophils (%) (Auto) 1 % (0-3) Neutrophils # (Auto) 4.1 x10^3/uL (1.8-7.7) Lymphocytes # (Auto) 2.2 x10^3/uL (1.0-4.8) Monocytes # (Auto) 0.6 x10^3/uL (0.0-1.1) Eosinophils # (Auto) 0.1 x10^3/uL (0.0-0.7) Basophils # (Auto) 0.1 x10^3/uL (0.0-0.2) Sodium Level 137 mmol/L (136-145) Potassium Level 3.9 mmol/L (3.5-5.1) Chloride Level 102 mmol/L (98-107) Carbon Dioxide Level 25 mmol/L (21-32) Anion Gap 10 (6-14) Blood Urea Nitrogen 21 mg/dL (8-26) Creatinine 1.1 mg/dL (0.7-1.3) Estimated GFR (Cockcroft-Gault) 69.0 BUN/Creatinine Ratio 19 (6-20) Glucose Level 163 mg/dL (70-99) Lactic Acid Level 1.5 mmol/L (0.4-2.0) Calcium Level 8.7 mg/dL (8.5-10.1) Total Bilirubin 0.3 mg/dL (0.2-1.0) Aspartate Amino Transf (AST/SGOT) 27 U/L (15-37) Alanine Aminotransferase (ALT/SGPT) 54 U/L (16-63) Alkaline Phosphatase 148 U/L (46-116) Total Protein 7.4 g/dL (6.4-8.2) Albumin 3.5 g/dL (3.4-5.0) Albumin/Globulin Ratio 0.9 (1.0-1.7) Glucose (Fingerstick) 189 mg/dL (70-99) 150 mg/dL (70-99) 146 mg/dL (70-99) Test 05/29/19 02:40 05/29/19 07:45 Erythrocyte Sedimentation Rate 10 (0-15) Glucose (Fingerstick) 154 mg/dL (70-99) Laboratory Tests Test 05/28/19 09:18 05/28/19 11:58 05/28/19 16:50 05/28/19 20:20 White Blood Count 7.0 x10^3/uL (4.0-11.0) Red Blood Count 5.13 x10^6/uL (4.30-5.70) Hemoglobin 14.4 g/dL (13.0-17.5) Hematocrit 42.9 % (39.0-53.0) Mean Corpuscular Volume 84 fL (79-100) Mean Corpuscular Hemoglobin 28 pg (25-35) Mean Corpuscular Hemoglobin Concent 34 g/dL (31-37) Red Cell Distribution Width 15.7 % (11.5-14.5) Platelet Count 176 x10^3/uL (140-400) Neutrophils (%) (Auto) 58 % (31-73) Lymphocytes (%) (Auto) 32 % (24-48) Monocytes (%) (Auto) 9 % (0-9) Eosinophils (%) (Auto) 1 % (0-3) Basophils (%) (Auto) 1 % (0-3) Neutrophils # (Auto) 4.1 x10^3/uL (1.8-7.7) Lymphocytes # (Auto) 2.2 x10^3/uL (1.0-4.8) Monocytes # (Auto) 0.6 x10^3/uL (0.0-1.1) Eosinophils # (Auto) 0.1 x10^3/uL (0.0-0.7) Basophils # (Auto) 0.1 x10^3/uL (0.0-0.2) Sodium Level 137 mmol/L (136-145) Potassium Level 3.9 mmol/L (3.5-5.1) Chloride Level 102 mmol/L (98-107) Carbon Dioxide Level 25 mmol/L (21-32) Anion Gap 10 (6-14) Blood Urea Nitrogen 21 mg/dL (8-26) Creatinine 1.1 mg/dL (0.7-1.3) Estimated GFR (Cockcroft-Gault) 69.0 BUN/Creatinine Ratio 19 (6-20) Glucose Level 163 mg/dL (70-99) Lactic Acid Level 1.5 mmol/L (0.4-2.0) Calcium Level 8.7 mg/dL (8.5-10.1) Total Bilirubin 0.3 mg/dL (0.2-1.0) Aspartate Amino Transf (AST/SGOT) 27 U/L (15-37) Alanine Aminotransferase (ALT/SGPT) 54 U/L (16-63) Alkaline Phosphatase 148 U/L (46-116) Total Protein 7.4 g/dL (6.4-8.2) Albumin 3.5 g/dL (3.4-5.0) Albumin/Globulin Ratio 0.9 (1.0-1.7) Glucose (Fingerstick) 189 mg/dL (70-99) 150 mg/dL (70-99) 146 mg/dL (70-99) Test 05/29/19 02:40 05/29/19 07:45 Erythrocyte Sedimentation Rate 10 (0-15) Glucose (Fingerstick) 154 mg/dL (70-99) Medications Current Medications Sodium Chloride 1,000 ml @ 1,000 mls/hr 1X ONCE IV Last administered on 05/28/19at 09:21; Start 05/28/19 at 09:30; Stop 05/28/19 at 10:29; Status DC Fentanyl Citrate (Fentanyl 2ml Vial) 50 mcg 1X ONCE IVP Last administered on 05/28/19at 09:22; Start 05/28/19 at 09:30; Stop 05/28/19 at 09:31; Status DC Vancomycin HCl (Vanco Per Pharmacy) 1 each PRN DAILY PRN MC SEE COMMENTS Last administered on 05/28/19at 13:36; Start 05/28/19 at 10:00 Ceftriaxone Sodium (Rocephin) 1 gm 1X ONCE IVP Last administered on 05/28/19at 09:57; Start 05/28/19 at 10:00; Stop 05/28/19 at 10:01; Status DC Vancomycin HCl 1.75 gm/Sodium Chloride 500 ml @ 250 mls/hr 1X ONCE IV Last administered on 05/28/19at 09:57; Start 05/28/19 at 10:00; Stop 05/28/19 at 11:59; Status DC Fentanyl Citrate (Fentanyl 2ml Vial) 50 mcg 1X ONCE IVP Last administered on 05/28/19at 10:10; Start 05/28/19 at 10:30; Stop 05/28/19 at 10:31; Status DC Ondansetron HCl (Zofran) 4 mg PRN Q8HRS PRN IV NAUSEA/VOMITING Last administered on 05/28/19at 11:09; Start 05/28/19 at 10:15; Stop 05/29/19 at 10:14 Fentanyl Citrate (Fentanyl 2ml Vial) 50 mcg PRN Q1HR PRN IV PAIN Last administered on 05/28/19at 17:36; Start 05/28/19 at 10:15; Stop 05/29/19 at 10:14 Oxycodone/ Acetaminophen (Percocet 10/325) 1 tab PRN Q4HRS PRN PO SEVERE PAIN Last administered on 05/29/19at 05:56; Start 05/28/19 at 13:30 Vancomycin HCl 1 gm/Sodium Chloride 250 ml @ 250 mls/hr Q12H IV Last administered on 05/28/19at 22:14; Start 05/28/19 at 22:00 Vancomycin HCl (Vancomycin Trough Level) 1 each 1X ONCE MC ; Start 05/29/19 at 21:30; Stop 05/29/19 at 21:31 Active Scripts Active Reported Lisinopril 2.5 Mg Tablet 1 Tab PO DAILY Vitals/I & O Vital Sign - Last 24 Hours 05/28/19 05/28/19 05/28/19 05/28/19 08:54 09:22 09:52 10:09 Temp 98.8 98.8 Pulse 78 68 Resp 16 16 16 16 B/P (MAP) 183/83 (116) 167/84 (111) Pulse Ox 97 94 O2 Delivery Room Air Room Air 05/28/19 05/28/19 05/28/19 05/28/19 10:10 10:40 11:09 11:10 Pulse 67 Resp 16 16 16 16 B/P (MAP) 165/80 (108) Pulse Ox 95 05/28/19 05/28/19 05/28/19 05/28/19 11:35 12:44 13:00 14:28 Resp 16 Pulse Ox 95 95 O2 Delivery Room Air 05/28/19 05/28/19 05/28/19 05/28/19 14:29 15:00 17:09 17:36 Temp 98.1 98.1 Pulse 65 Resp 16 B/P (MAP) 145/63 (90) Pulse Ox 95 95 95 95 O2 Delivery Room Air 05/28/19 05/28/19 05/28/19 05/28/19 18:52 19:00 19:38 20:08 Temp 97.8 97.8 Pulse 72 Resp 18 14 B/P (MAP) 141/65 (90) Pulse Ox 95 97 95 O2 Delivery Room Air Room Air Room Air Room Air 05/28/19 05/28/19 05/29/19 05/29/19 20:38 23:00 03:00 05:56 Temp 97.6 97.6 97.6 97.6 Pulse 62 63 Resp 14 18 18 14 B/P (MAP) 129/80 (96) 135/73 (93) Pulse Ox 95 91 96 96 O2 Delivery Room Air Room Air Room Air Room Air 05/29/19 06:57 Resp 14 Pulse Ox 96 O2 Delivery Room Air Intake and Output 05/28/19 05/28/19 05/29/19 15:00 23:00 07:00 Intake Total 1000 ml 300 ml Balance 1000 ml 300 ml SUE JAMESON MD May 29, 2019 08:14
[2019-05-29] MEDS: fentaNYL PF VIAL 100 MCG/2 ML VIAL IV PRN (08:44)
--- NOTE | 2019-05-29 09:24 | NUR ---
SW following. Discussed with RN, pt is from home with family. Pt having an MRI today. SW will continue to follow.
--- NOTE | 2019-05-29 10:35 | PDOC ---
Infectious Disease Note Subjective Subjective pt is feeling good, no complaints ROS ROS no n/v/d/sob/fever Vital Sign Vital Signs Vital Signs Date Time Temp Pulse Resp B/P (MAP) Pulse Ox O2 Delivery O2 Flow Rate FiO2 05/29/19 09:14 94 Room Air 05/29/19 07:00 97.8 74 18 135/76 (95) 97.8 Physical Exam PHYSICAL EXAM GENERAL: The patient is propped up in bed, alert, no apparent distress. HEENT: Pupils equally round, oral cavity, pharynx clear. NECK: Supple. LUNGS: Clear to auscultation. HEART: S1, S2. ABDOMEN: Soft, nontender with bowel sounds present. EXTREMITIES: No gross edema or cyanosis. Previous right TMA. There is a small ulcer on the plantar aspect without signs of infection. The left second toe is swollen, mildly red. There are no open wounds. Distal pulses palpable. The third toenail is a dark. Previous left great toe amputation site is well healed. SKIN: Warm to touch without signs of rash. Multiple tattoos. NEUROLOGIC: Alert and oriented x 3. Labs Lab Laboratory Tests Test 05/28/19 11:58 05/28/19 16:50 05/28/19 20:20 05/29/19 02:40 Glucose (Fingerstick) 189 mg/dL (70-99) 150 mg/dL (70-99) 146 mg/dL (70-99) Erythrocyte Sedimentation Rate 10 (0-15) Test 05/29/19 07:45 Glucose (Fingerstick) 154 mg/dL (70-99) Micro Microbiology 05/28/19 Blood Culture - Preliminary, Resulted NO GROWTH AFTER 1 DAY Objective Assessment ASSESSMENT: 1. Cellulitis, left second toe. 2. Charcot's foot. 3. Nonhealing ulcer, right foot. 4. Diabetes with peripheral neuropathy. 5. History of methicillin-resistant Staphylococcus. Plan Plan of Care Continue antibiotics Monitor renal function closely f/u [facility] following MRI has been ordered left foot Local wound care right foot ESR D/w nursing D/w Dr. Vaughn no clinical evidence for osteo, all reported is chrcots deformity MRI can be done out pt change antibiotics to po . RIGO SHOEMAKER MD May 29, 2019 10:34
[2019-05-29 11:00] VITALS: BP 158/86
[2019-05-29] MEDS ORDERED: FLUCONAZOLE 100 MG TABLET. PO SCH (11:00)
[2019-05-29] MEDS ORDERED: DOXY100T PO (13:08)
--- NOTE | 2019-05-29 13:11 | PDOC3 ---
Discharge Summary Visit Information Date of Admission: May 28, 2019 Date of Discharge: May 29, 2019 Admitting Diagnosis: Cellulitis Final Diagnosis Problems Medical Problems: (1) Cellulitis Status: Acute (2) Osteomyelitis Status: Acute Brief Hospital Course Allergies Allergies Coded Allergies Type Severity Reaction Last Updated Verified No Known Drug Allergies 05/03/19 No Vital Signs Vital Signs Date Time Temp Pulse Resp B/P (MAP) Pulse Ox O2 Delivery O2 Flow Rate FiO2 05/29/19 11:47 Room Air 05/29/19 11:00 97.6 67 18 158/86 (110) 96 97.6 Lab Results Laboratory Tests Test 05/28/19 09:18 05/28/19 11:58 05/28/19 16:50 05/28/19 20:20 White Blood Count 7.0 x10^3/uL (4.0-11.0) Red Blood Count 5.13 x10^6/uL (4.30-5.70) Hemoglobin 14.4 g/dL (13.0-17.5) Hematocrit 42.9 % (39.0-53.0) Mean Corpuscular Volume 84 fL (79-100) Mean Corpuscular Hemoglobin 28 pg (25-35) Mean Corpuscular Hemoglobin Concent 34 g/dL (31-37) Red Cell Distribution Width 15.7 % (11.5-14.5) Platelet Count 176 x10^3/uL (140-400) Neutrophils (%) (Auto) 58 % (31-73) Lymphocytes (%) (Auto) 32 % (24-48) Monocytes (%) (Auto) 9 % (0-9) Eosinophils (%) (Auto) 1 % (0-3) Basophils (%) (Auto) 1 % (0-3) Neutrophils # (Auto) 4.1 x10^3/uL (1.8-7.7) Lymphocytes # (Auto) 2.2 x10^3/uL (1.0-4.8) Monocytes # (Auto) 0.6 x10^3/uL (0.0-1.1) Eosinophils # (Auto) 0.1 x10^3/uL (0.0-0.7) Basophils # (Auto) 0.1 x10^3/uL (0.0-0.2) Sodium Level 137 mmol/L (136-145) Potassium Level 3.9 mmol/L (3.5-5.1) Chloride Level 102 mmol/L (98-107) Carbon Dioxide Level 25 mmol/L (21-32) Anion Gap 10 (6-14) Blood Urea Nitrogen 21 mg/dL (8-26) Creatinine 1.1 mg/dL (0.7-1.3) Estimated GFR (Cockcroft-Gault) 69.0 BUN/Creatinine Ratio 19 (6-20) Glucose Level 163 mg/dL (70-99) Lactic Acid Level 1.5 mmol/L (0.4-2.0) Calcium Level 8.7 mg/dL (8.5-10.1) Total Bilirubin 0.3 mg/dL (0.2-1.0) Aspartate Amino Transf (AST/SGOT) 27 U/L (15-37) Alanine Aminotransferase (ALT/SGPT) 54 U/L (16-63) Alkaline Phosphatase 148 U/L (46-116) Total Protein 7.4 g/dL (6.4-8.2) Albumin 3.5 g/dL (3.4-5.0) Albumin/Globulin Ratio 0.9 (1.0-1.7) Glucose (Fingerstick) 189 mg/dL (70-99) 150 mg/dL (70-99) 146 mg/dL (70-99) Test 05/29/19 02:40 05/29/19 07:45 05/29/19 10:58 Erythrocyte Sedimentation Rate 10 (0-15) Glucose (Fingerstick) 154 mg/dL (70-99) 131 mg/dL (70-99) Laboratory Tests Test 05/28/19 16:50 05/28/19 20:20 05/29/19 02:40 05/29/19 07:45 Glucose (Fingerstick) 150 mg/dL (70-99) 146 mg/dL (70-99) 154 mg/dL (70-99) Erythrocyte Sedimentation Rate 10 (0-15) Test 05/29/19 10:58 Glucose (Fingerstick) 131 mg/dL (70-99) Brief Hospital Course Mr Pisano is a 58yo M recently moved from [place], [place] w/ PMHx 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 Symptoms have worsened despite antibiotics (clindamycin followed by recent hospital stay and treated with Augmentin, fluconazole and Zyvox with improvement. An arterial duplex showed normal sonographic appearance of the major arteries of the left lower extremity. He was seen by Ortho service, who h ad recommended a [place] walker, but the patient says he has not gotten one yet. X-ray of the left foot taken on admit showed worsening appearance of the foot from 05/03 with manifestations of osteomyelitis involving the second toe proximal phalanx and second through fourth metatarsals. This includes periosteal new bone formation and osseous destruction at the second through fourth metatarsal heads. Slightly more pronounced degree of dorsal/proximal dislocation across the second MTP joint. Edematous soft tissues throughout the foot and extending at the lower leg. The patient has no open wounds on his left foot and a recent sed rate was 3 on 05/03. Started empirically on vancomycin and ceftriaxone, seen by orthopedic surgery and infectious disease in consultation. He is feeling better today. no clinical evidence for osteo, all reported is charcots deformity MRI can be done out pt change antibiotics to po . Problem list: Left foot cellulitis - 3rd toe. Given rocephin, will cont vancomycin, add gram negative coverage. Consult ID. Check left leg arterial dopplers Diabetic foot ulcer - will consult wound care for multiple ulcers. 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 Alcohol use disorder in remission - stable DM2 - will check a1c. Not on any meds currently. Will place on basal bolus plus regimen for now prior H/o TBI (2013) - some memory issues since Diabetic polyneuropathy - s/o multiple amputations. Will start cymbalta, may add gabapentin in the future Chronic LBP (2003 fusion) - he states surgery has helped him significantly GERD s/p keaton - not on acid reducing agents Greater than 30 minutes spent on d/c Discharge Information Condition at Discharge: Improved Follow Up: Weeks (1) Disposition/Orders: D/C to Home Scheduled Doxycycline Hyclate (Doxycycline Hyclate) 100 Mg Tablet, 100 MG PO BID for Cellulitis for 10 Days, #20 Prescribed by: SUE JAMESON MD on 05/29/19 1308 Lisinopril (Lisinopril) 2.5 Mg Tablet, 1 TAB PO DAILY for unknown, #30 Ref 5 (Reported) Entered as Reported by: YOSHI CLARK on 05/28/191506 Last Taken: UNKNOWN on Unknown Date & Time Last Action: New Order on 05/28/191506 by SUE SERNA MD May 29, 2019 13:11
[2019-05-29 15:00] VITALS: BP 132/88
[2019-05-29] MEDS ORDERED: GADOTERATE 5 MMOL/10ML VIAL. IVP ONE (15:15)
[2019-05-29] MEDS ORDERED: GADOTERATE 7.5 MMOL/15ML VIAL. IVP ONE (15:15)
--- NOTE | 2019-05-29 17:44 | RAD ---
MR of the left foot HISTORY: Foot swelling and redness. Neuropathic arthropathy. No surface wounds or ulcer. No clinical sign of infection. TECHNIQUE: Routine pre and postcontrast images are obtained through the foot. COMPARISON: None, correlation with radiographs of 05/28/2019 and 05/03/2019. FINDINGS: Moderate motion degradation. Dislocation of the second MTP joint is again seen with proximal overriding, as identified on radiographs. Diffuse intramuscular edema and swelling as well as enhancement particularly around the second, third and fourth metatarsals. Fairly solid periosteal new bone formation involving the second and third metatarsals, and proximal second phalanx, as seen on radiographs. There is also more generalized soft tissue edema and enhancement about the midfoot. There is some collapse or fragmentation of the third and fourth metatarsal heads as seen on the radiographs. Diffuse marrow edema signal throughout the first, second and third and fourth metatarsals. There is also mild homogeneous loss of T1 marrow signal of these bones, fairly homogeneous and diffuse. There is also some marrow edema within the phalanges, but no definite loss of fatty marrow T1 signal. No large joint effusion. No organized fluid collection or drainable abscess is seen. There has been amputation of the first toe at the MTP joint. Lisfranc ligament complex appears intact. Tarsometatarsal alignment is grossly intact. The flexor hallucis longus tendon is thickened and retracted. No significant tendon sheath fluid is seen. IMPRESSION: 1. Diffuse soft tissue and intramuscular edema and enhancement around the foot, greatest around the second, third and fourth metatarsals. The imaging appearance suggests cellulitis. 2. Collapse and fragmentation of the third and fourth metatarsal heads, and fairly homogeneous periosteal new bone formation at the second and third metatarsals and second proximal phalanx. These findings are more typical of neuropathic arthropathy than acute osteomyelitis. Fairly homogeneous bone marrow edema throughout the first, second, third and fourth metatarsals with mild generalized loss of T1 signal and enhancement. The diffuse multifocal nature of this marrow change would also favor neuropathic arthropathy. Particularly in conjunction with the clinical information, osteomyelitis is considered much less likely, but given the severe nature of all of these changes, is difficult to exclude. 3. Findings were discussed with Dr. Gregorio Vaughn at the time of this report. Electronically signed by: Noel Mensah MD (05/29/2019 5:41 PM) [facility]
[2019-05-29] MEDS ORDERED: DOXYCYCLINE HYCLATE 100 MG TABLET PO SCH (21:00)
== END 2019-05-29 18:30 | disposition home or self-care (01) | DRG 603 ==
LOC: ER 08:37 → 4 NORTH 09:46
PROVIDERS: ADMIT Internal Medicine; ATTEND Internal Medicine
DX: L03.116 Cellulitis of left lower limb (principal); M86.9 Osteomyelitis, unspecified; I10 Essential (primary) hypertension; E11.42 Type 2 diabetes mellitus with diabetic polyneuropathy; L03.032 Cellulitis of left toe; L97.519 Non-pressure chronic ulcer of other part of right foot with unspecified severity; E11.621 Type 2 diabetes mellitus with foot ulcer; E11.610 Type 2 diabetes mellitus with diabetic neuropathic arthropathy; F10.11 Alcohol abuse, in remission; G89.29 Other chronic pain; K21.9 Gastro-esophageal reflux disease without esophagitis; F19.11 Other psychoactive substance abuse, in remission; L97.529 Non-pressure chronic ulcer of other part of left foot with unspecified severity; E11.69 Type 2 diabetes mellitus with other specified complication; Z98.1 Arthrodesis status; Z87.820 Personal history of traumatic brain injury; Z86.14 Personal history of Methicillin resistant Staphylococcus aureus infection; Z89.412 Acquired absence of left great toe; Z89.421 Acquired absence of other right toe(s); Z83.3 Family history of diabetes mellitus; Z82.49 Family history of ischemic heart disease and other diseases of the circulatory system
CPT/HCPCS: 36415; 73630; 73720; 80053; 82962; 83605; 85025; 85651; 87040; A9575; J0696; J2405; J3010; J3370; J7030; J7040; J7050; G0378

== ENCOUNTER 2020-02-28 12:14 | Emergency (ER) | payer MEDICARE, MEDICAID ==
[~2020-02-28] VITALS: Ht 188 cm; Wt 113.6 kg
[~2020-02-28 12:14] MED LIST changes: +DOXY100T PO; +LISI2.5T PO
[2020-02-28 12:36] VITALS: BP 179/79
== END 2020-02-28 13:28 | disposition left against medical advice (07) ==
LOC: ER 12:14
DX: M79.672 Pain in left foot (principal); Z53.21 Procedure and treatment not carried out due to patient leaving prior to being seen by health care provider

== ENCOUNTER 2020-07-04 20:20 | Inpatient (IN) | payer MEDICARE, MEDICAID ==
[~2020-07-04] VITALS: Ht 188 cm; Wt 113.6 kg
[2020-07-04 20:15] VITALS: BP 155/75
--- NOTE | 2020-07-04 20:20 | NUR ---
Pt. arrived on unit at 2019 by EMS. Pt. is A&Ox4, on room air, and does not complain of any pain at this time. call light is within reach with bed in lowest position. Will continue to monitor.
[2020-07-04] MEDS ORDERED: DEXTROSE 50% 25 GM / 50ML DISP.SYRIN. IV PRN (21:45)
[2020-07-04] MEDS ORDERED: ACETAMINOPHEN 325 MG TABLET. PO PRN (21:45)
[2020-07-04] MEDS ORDERED: ONDANSETRON PF 4 MG/2 ML VIAL. IVP PRN (21:45)
[2020-07-04] MEDS: MORPHINE SULFATE 2 MG/ML VIAL. IV PRN (22:12)
[2020-07-04 23:54] VITALS: BP 137/88
[2020-07-05] MEDS: IV NORMAL SALINE 1000ML BAG 1,000 ML IV SCH ×2 (00:25→10:30)
[2020-07-05] MEDS: MORPHINE SULFATE 4 MG/ML VIAL. IV PRN ×2 (00:32→21:19)
--- NOTE | 2020-07-05 01:51 | NUR ---
COVID swab sent to lab this shift.
[2020-07-05 03:34] VITALS: BP 150/81
--- NOTE | 2020-07-05 04:12 | NUR ---
Pt. states he does not check his sugars daily due to not having a machine to check them with and that he has tried many anti-diabetic medications that only seemed to drop his sugar too low. He states his PCP told him he could lower his sugars by diet which is what he has been doing.
[2020-07-05] MEDS: MORPHINE SULFATE 2 MG/ML VIAL. IV PRN ×3 (06:23→15:26)
[2020-07-05] MEDS ORDERED: PREG200C PO (06:28)
[2020-07-05] MEDS ORDERED: MELO7.5T29 PO (06:28)
[2020-07-05 07:00] VITALS: BP 150/84
--- NOTE | 2020-07-05 07:58 | PDOC2 ---
CONSULT Date of Consult Date of Consult DATE: 07/05/20 TIME: 07:56 History of Present Illness Reason for Visit: Huy is a 59-year-old man who was diagnosed in 2019 with diabetes and who I cared for twice in 2020. He is admitted to the Hospitalist with diabetes and left second toe changes of osteomyelitis with consultation to orthopedics. He has a prior left great toe amputation and prior right foot transmetatarsal amputation. He reports bilateral lower extremity neuropathy which predates the diagnosis of diabetes, and he began having lower extremity symptoms and neuropathy problems after lumbar spine fusion surgery in 2003. He reports a work injury in 2002 with spinal damage, and says he had lumbar fusion [id number] in 2003 after which he had numbness in his feet. He was in [place] in 2019 and had a right foot transmetatarsal amputation, and left right toe amputation. He was admitted to [facility] in 2019 and had further surgeries. I was also suspicious of a Charcot foot in 2020. He is readmitted now with left second toe osteomyelitis on examination, and possible osteomyelitis of the third and fourth metatarsal heads based on x-ray findings. He presented to [facility] and was transferred for further care. At the time I saw him last year he had a very enlarged foot which was red swollen and appeared almost like a total foot infection, but was likely a Charcot foot. At that time I had recommended a LEVELOCK walker, but he never did obtain one. In the meantime he has used some high-quality Redwing shoes for activity. The foot swelling and erythema and apparent cellulitis that he had previously has resolved. Really the only problem he is having is at the tip of the second toe. Despite the x-ray findings with some changes at the third fourth and possibly the fifth metatarsals, these are doing well clinically without swelling tenderness drainage open wound etc. He has a a second toe which is swollen, erythematous, and has an open wound at the distal phalanx. Past Medical History Past Medical History Chronic low back problems, spine surgery which resulted in sensation loss and symptoms of neuropathy. 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 Diabetes. Foot amputations. Diabetic neuropathy. Cardiovascular: No pertinent hx Pulmonary: No pertinent hx GI: No pertinent hx Heme/Onc: No pertinent hx Hepatobiliary: No pertinent hx Psych: No pertinent hx Rheumatologic: No pertinent hx Infectious disease: No pertinent hx Renal/: No pertinent hx Endocrine: Diabetes Past Surgical History Past Surgical History: Arthroscopy Family History Family History: Diabetes, High Cholestrol, Hypertension Social History ALCOHOL: none Drugs: Heroin Current Medications Current Medications Current Medications Ondansetron HCl (Zofran) 4 mg PRN Q4HRS PRN IVP NAUSEA/VOMITING 1ST CHOICE; Start 07/04/20 at 21:45 Morphine Sulfate (Morphine Sulfate) 2 mg PRN Q2HR PRN IV MODERATE PAIN 4-6 Last administered on 07/05/20at 06:23; Start 07/04/20 at 21:45 Sodium Chloride 1,000 ml @ 100 mls/hr Q10H IV Last administered on 07/05/20at 00:25; Start 07/05/20 at 00:00 Acetaminophen (Tylenol) 650 mg PRN Q6HRS PRN PO MILD PAIN / TEMP > 100.5'F; Start 07/04/20 at 21:45 Insulin Human Lispro (HumaLOG) 0-7 UNITS TIDWMEALS SQ ; Start 07/05/20 at 08:00 Dextrose (Dextrose 50%-Water Syringe) 12.5 gm PRN Q15MIN PRN IV SEE COMMENTS; Start 07/04/20 at 21:45 Morphine Sulfate (Morphine Sulfate) 3 mg PRN Q2HR PRN IV SEVERE PAIN 7-10 Last administered on 07/05/20at 00:32; Start 07/04/20 at 21:45 Active Scripts Active Reported Lyrica (Pregabalin) 200 Mg Capsule 1 Cap PO BID Meloxicam 7.5 Mg Tablet 1 Tab PO DAILY 30 Days Allergies Allergies: Coded Allergies: No Known Drug Allergies (Unverified , 05/03/19) ROS Review of System GENERAL: No history of weight change, weakness or fevers. SKIN: No bruising, hair changes or rashes. EYES: No blurred, double or loss of vision. NOSE AND THROAT: No history of nosebleeds, hoarseness or sore throat. HEART: No history of palpitations, chest pain or shortness of breath on exertion. LUNGS: Denies cough, hemoptysis, wheezing or shortness of breath. GASTROINTESTINAL: Denies changes in appetite, nausea, vomiting, diarrhea or constipation. GENITOURINARY: No history of frequency, urgency, hesitancy or nocturia. NEUROLOGIC: Denies history of numbness, tingling, tremor or weakness. PSYCHIATRIC: No history of panic, anxiety or depression. ENDOCRINE: No history of heat or cold intolerance, polyuria or polydipsia. EXTREMITIES: He complains of left foot toe infection. Physical Exam General: Alert, Cooperative HEENT: Atraumatic Lungs: Normal air movement Heart: Regular rate Abdomen: Soft Extremities: Other (When I saw his left foot previously and had severe circumferential swelling and erythema but that has completely resolved. Most of the foot has normal contours. He does have hammertoe deformities but within the limits of what is typical for his age. The great toe has been previously amputated and that incision is well-healed. The second toe has an open wound at the distal tip, and circumferential swelling consistent with osteomyelitis. The third fourth and fifth toes and metatarsal heads are all normal other than the hammertoe deformities, without open wounds swelling erythema or tenderness. Sensation is markedly decreased. Capillary refill appears satisfactory, pulses are difficult to palpate though.) Neuro: Normal speech, Other (Severe bilateral lower extremity sensory loss.) Psych/Mental Status: Mental status NL, Mood NL Vitals VITALS Vital Signs Date Time Temp Pulse Resp B/P (MAP) Pulse Ox O2 Delivery O2 Flow Rate FiO2 07/05/20 07:00 Room Air 07/05/20 03:34 98.4 71 18 150/81 (104) 96 98.4 Labs Labs Laboratory Tests Test 07/04/20 21:35 07/05/20 00:26 07/05/20 07:43 Glucose (Fingerstick) 144 mg/dL (70-99) 150 mg/dL (70-99) SARS-CoV-2 Antigen (Rapid) Negative (NEGATIVE) Laboratory Tests Test 07/04/20 21:35 07/05/20 00:26 07/05/20 07:43 Glucose (Fingerstick) 144 mg/dL (70-99) 150 mg/dL (70-99) SARS-CoV-2 Antigen (Rapid) Negative (NEGATIVE) Images Images Report reviewed and images independently reviewed. Remotely had great toe amputation. The second metatarsal head is nearly absent, probable osteomyelitis with some sequestrum, and the distal phalanx of the second toe appears to have lytic changes, consistent with osteomyelitis. The third and fourth metatarsal heads also show fragmentation, suspicious for osteomyelitis or perhaps charcot arthropathy. [address] [address] IMAGING REPORT Signed PATIENT: HUY CASTELLON ACCOUNT: [id number] : 1960 LOCATION: ER AGE: 59 SEX: M EXAM STATUS: REG ER ORD. PHYSICIAN: SINTIA GU MD REASON: 4th toe infection suspected, osteo, multiple surgeries. PROCEDURE: FOOT LEFT 3V Left foot 3 views. HISTORY: Fourth toe infection osteomyelitis 3 views were taken the left foot. Comparison is made with a study from April 2019. There is been a previous amputation of the great toe. There is bony destruction at the distal phalanx of the second toe. There has either been prior resection or destruction at the head of the second metatarsal. There is a new bony destructive process involving the head of the third metatarsal. There is also irregularity at the head of the fourth metatarsal. There is soft tissue swelling. IMPRESSION: 1. Previous amputation great toe. 2. Bony changes suggesting chronic osteomyelitis at the second third and fourth metatarsal heads. 3. Bony destruction distal phalanx left second toe with soft tissue swelling of the second toe. Electronically signed by: Rodrick Schmitt MD (07/04/2020 4:15 PM) [facility] DICTATED AND SIGNED BY: RODRICK SCHMITT MD DATE: 07/04/20 462 CC: EVANS HERNANDEZ MD; SINTIA GU MD Assessment/Plan Assessment/Plan Looking at his x-ray initially, I was concerned that he would require a transmetatarsal amputation. Once I examined his foot, I really think a second toe amputation is all that is required at this time. Unfortunately transfer lesions are a possibility and he stated understanding that he might need future surgery and further amputations in the long-term, and he said "we will cross that bridge when we get to it". I agree. I am recommending a left second toe amputation for resolution of the second toe osteomyelitis, and offloading along with antibiotics. On my examination the changes seen on the third and fourth metatarsal heads are probably chronic changes related to resolved Charcot disea se and less likely seem to be osteomyelitis on exam. We talked about the risks of surgery including risks of infection, ongoing open wounds and poor healing. I discussed the necessity of offloading particularly when there is such severe neuropathy. He cannot let pain be his guide, he really needs to strictly keep the weight off the incisions. He agrees with the plan for left second toe amputation tomorrow. KIAH HIGUERA MD Jul 05, 2020 07:58
[2020-07-05] MEDS: INSULIN LISPRO 300 UNITS/3 ML VIAL. SQ SCH ×3 (08:00→17:00)
--- NOTE | 2020-07-05 10:07 | NUR ---
SW following. Discussed with RN, pt from home, room air, NPO, IV abx, rapid COVID-[address] Vaughn following. RN advised no SW needs at this time. SW will continue to follow.
[2020-07-05 11:00] VITALS: BP 141/83
--- NOTE | 2020-07-05 12:16 | HP ---
ADMIT DATE: CHIEF COMPLAINT: Left foot wound. HISTORY OF PRESENT ILLNESS: The patient is a pleasant 59-year-old male who has severe peripheral vascular disease secondary to severe diabetes. Basically, he has already had a transmetatarsal on the right, now the left foot is infected. He had a first toe that was amputated on the left and they also did a metatarsal amputation, but now the second toe has been pointing down and rubbing on the ground, so he has developed some severe infection there. It is rated at 7/10. He has associated weakness. It has been coming on for several weeks to months, worse with moving, better with sitting still, described as very irritating. I discussed the case with ER physician. We are going to admit the patient and consult Orthopedics. PAST MEDICAL HISTORY: Right transmetatarsal amputation, left first toe amputation, left first metatarsal amputation, diabetes, hypertension, hyperlipidemia, arthroscopy, depression and anxiety, muscle spasms. ALLERGIES: None. FAMILY HISTORY: Diabetes and hypertension. SOCIAL HISTORY: He does not drink, smoke or take drugs. MEDICATIONS: Reviewed. He is on meloxicam and Lyrica. REVIEW OF SYSTEMS: GENERAL: No history of weight change, weakness or fevers. SKIN: No bruising, hair changes or rashes. EYES: No blurred, double or loss of vision. NOSE AND THROAT: No history of nosebleeds, hoarseness or sore throat. HEART: No history of palpitations, chest pain or shortness of breath on exertion. LUNGS: Denies cough, hemoptysis, wheezing or shortness of breath. GASTROINTESTINAL: Denies changes in appetite, nausea, vomiting, diarrhea or constipation. GENITOURINARY: No history of frequency, urgency, hesitancy or nocturia. NEUROLOGIC: Denies history of numbness, tingling, tremor or weakness. PSYCHIATRIC: No history of panic, anxiety or depression. ENDOCRINE: No history of heat or cold intolerance, polyuria or polydipsia. EXTREMITIES: He complains of left foot toe infection. PHYSICAL EXAMINATION: VITALS: Within normal limits and are stable. GENERAL: No apparent distress. Alert and oriented. HEENT: Normal cephalic atraumatic, external auditory canals are patent. EYES: Extraocular muscles are intact, pupils are equally round and reactive to light and accommodation. MUSCULOSKELETAL: Well developed, well nourished, good range of motion. ENDOCRINE: No thyromegaly was palpated. LYMPHATICS: No cervical chain or axillary nodes were noted. HEMATOPOIETIC: No bruising. NECK: Supple, no JVD, no thyromegaly was noted. LUNGS: Clear to auscultation in all lung king without rhonchi or wheezing. HEART: RRR, S1, S2 present. Peripheral pulses intact, no obvious murmurs were noted. ABDOMEN: Soft, nontender. Positive bowel sounds no organomegaly, normal bowel sounds. EXTREMITIES: The left second toe is infected. Please see the pictures. It appears that probably will have to be amputated, but we will await orthopedics' input. NEUROLOGIC: Normal speech, normal tone. A and O x 3, moves all extremities, no obvious focal deficits. PSYCHIATRIC: Normal affect, normal mood. Stable. SKIN: No ulcerations or rashes, good skin turgor, no jaundice. VASCULAR: Good capillary refill, neurovascular bundle appears to be intact. LABORATORY DATA: Glucose is 144. Other labs are pending. ASSESSMENT AND PLAN: Peripheral vascular disease with diabetic toe. Suspect he might need an amputation. We consulted Dr. Vaughn. For now, we are doing IV antibiotics, wound care, home meds, DVT prophylaxis. Full code. P.r.n. pain meds, IV fluids, p.r.n. morphine, sliding scale insulin. We swabbed him for singh-19 in case he needs to go to surgery. P.r.n. Elfego. BETITO DIAZ DO DR: SHI/marquis JOB#: [id number] / [id number]
[2020-07-05 15:00] VITALS: BP 174/90
[2020-07-05 15:23] LABS: BASO % 1 % (0-3); EOS # 0.1 x10^3/uL (0.0-0.7); EOS % 2 % (0-3); HEMATOCRIT 41.5 % (39.0-53.0); HEMOGLOBIN 14.4 g/dL (13.0-17.5); LYMPH # 1.9 x10^3/uL (1.0-4.8); LYMPH % 31 % (24-48); MEAN CORPUSCULAR HEMOGLOBIN 29 pg (25-35); MEAN CORPUSCULAR HGB CONC 35 g/dL (31-37); MEAN CORPUSCULAR VOLUME 85 fL (79-100); MONO # 0.7 x10^3/uL (0.0-1.1); MONO % 11 % (0-9); NEUT # 3.4 x10^3/uL (1.8-7.7); NEUT % 55 % (31-73); PLATELET COUNT 151 x10^3/uL (140-400); RED BLOOD COUNT 4.89 x10^6/uL (4.30-5.70); RED CELL DISTRIBUTION WIDTH 12.7 % (11.5-14.5); WHITE BLOOD COUNT 6.2 x10^3/uL (4.0-11.0)
[2020-07-05 15:45] LABS: C-REACTIVE PROTEIN 27.3 mg/L (0-3.3); CALCIUM 8.5 mg/dL (8.5-10.1); CREATININE 1.1 mg/dL (0.7-1.3); GFR 68.8; POTASSIUM 3.9 mmol/L (3.5-5.1)
--- NOTE | 2020-07-05 18:13 | NUR ---
Wound Care Wound Type/Assessment: Consult to eval and treat for DFU to L 2nd toe. Pt transferred from [facility] where an xray determined +osteomyelitis to L 2nd, 3rd, 4th toes, with 2nd toe having an open ulcer. History of R TMA and L great toe amputation, healed. Pt was scheduled to undergo surgery with Dr. Vaughn today, but per nurse, patient had consumed lunch and the surgery will have to be rescheduled. The rescheduled date is not known at this time, although Johana reportedly recommending TMA of the left foot due to the involvement of 3rd and 4th toes, to which patient was not agreeable. Wound cleansed and measured (Photo present in chart; see detailed assessment). L 2nd toe swollen, warm, and red. Wound bed soft with aleman/yellow slough, red, irritated margins, and built up callous and nail deformity. Wound depth probes to bone, with small bone fragments removed from cavity during cleansing. No complaints of pain, pt insensate. Pedal pulse 2+. No other wounds present on head to toe assessment. Treatment Recommendations/Plan: L 2nd toe: Cleanse and pat dry, make sure to remove all iodoflex farideh. Apply piece of iodoflex (remove white mesh) and cover with foam dressing, secure with tape. Change every other day. If pt goes to surgery, refer to surgeon's recommendations. Education provided: Pt unfriendly and declined extensive education. Offloading surface/device: Pocahontas bed. Pillows for comfort. Able to self turn Recommended Referrals/Tests: Pending surgery to L foot. Discharge Recommendations for dressings: Continue as above until surgery complete. Wound care will monitor for changes in treatment plan and reassess.
[2020-07-05 19:00] VITALS: BP 131/79
[2020-07-05 23:00] VITALS: BP 141/78
[2020-07-06] VITALS (12 sets, daily range): BP systolic 99–140; BP diastolic 49–88
[2020-07-06] MEDS: IV NORMAL SALINE 1000ML BAG 1,000 ML IV SCH ×3 (00:15→14:41)
[2020-07-06] MEDS ORDERED: BUPIVACAINE-EPI 0.25% 30 ML VIAL KIT. ONE ×2 (07:11→07:12)
[2020-07-06] MEDS ORDERED: LIDOCAINE 2% PF 5 ML VIAL. ONE (07:38)
[2020-07-06] MEDS ORDERED: PROPOFOL 10 MG/ML (20ML) VIAL. IV ONE (07:38)
[2020-07-06] MEDS ORDERED: fentaNYL PF VIAL 100 MCG/2 ML VIAL ONE ×2 (07:39→09:10)
[2020-07-06] MEDS: INSULIN LISPRO 300 UNITS/3 ML VIAL. SQ SCH ×3 (07:55→17:07)
[2020-07-06] MEDS ORDERED: BUPIVACAINE MPF 0.25% 30 ML VIAL. ONE (07:58)
[2020-07-06] MEDS ORDERED: ceFAZolin 2GM PREMIX 2 GM/50 ML BAG IV ONE (08:00)
[2020-07-06] MEDS ORDERED: SEVOFLURANE 16 TO 30 MINUTES. IH ONE (08:15)
[2020-07-06] MEDS ORDERED: ONDANSETRON PF 4 MG/2 ML VIAL. ONE (08:15)
[2020-07-06] MEDS ORDERED: DEXAMETHASONE SOD PHOS 4 MG/ML VIAL ONE (08:15)
[2020-07-06] MEDS: fentaNYL PF VIAL 100 MCG/2 ML VIAL IVP PRN ×2 (09:00→09:14)
--- NOTE | 2020-07-06 09:08 | PDOC4 ---
Operative Note Operative Note Date of Procedure: July 06, 2020 Pre-Op Diagnosis: * Type 2 diabetes mellitus with diabetic peripheral angiopathy with gangrene E11.52 * Other acute osteomyelitis, left ankle and foot M86.172 Post-Op Diagnosis: same Procedure: left second toe, Amputation, toe; metatarsophalangeal joint CPT 41561 Surgeon: Kiah Vaughn MD Anesthesia: General EBL: 10 mL Specimens Obtained: left second toe for permanent specimen, and a deep bone swab culture was taken of the distal phalanx for microbiology Complications: none Drains: none Tourniquet: An Esmarch bandage was used as a tourniquet on the forefoot for about 10 minutes. Indications for Procedure: The patient is a 59-year-old with an open wound of the left second toe, and complications of diabetes. There is an open wound and possible exposed bone with persistent drainage, and has not resolved with nonoperative treatment. There is osteomyelitis on exam and radiographically. I recommended amputation of the left second toe at the metatarsophalangeal joint. The patient and I discussed the risks, benefits and alternatives of surgery. We discussed the potential risks of wound dehiscence, ongoing infection, need for further surgery, or other potential surgical or anesthetic complications. All of his questions about surgery were answered and he desires to proceed. Procedure in Detail: The patient was identified in the preoperative holding area . The correct left second toe was marked by me. The patient was taken to the operating room where general anesthesia was used. The patient was positioned supine on the operating table. Preoperative antibiotics were given intravenously. No tourniquet was used on the thigh. A timeout procedure was performed. The skin was prepared in sterile fashion using Betadine. Sterile drapes were applied. The limb was elevated to exsanguinate it. An Esmarch bandage was used around the forefoot as a forefoot tourniquet. An elliptical incision was used transversely at the metatarsophalangeal joint. Sharp dissection was used. The left second toe was disarticulated at the metatarsophalangeal joint, and the specimen was removed. After it had been removed, I incised the tip of the toe where the open wound is located, deeply, into the distal phalanx bone, and placed my culture swab. The toe specimen was sent for pathology and the swab to microbiology. Additional tissue was resected to allow for a tension-free closure. Betadine lavage was used. Copious irrigation with saline was now performed. The tourniquet was released. Bovie electrocautery was used for hemostasis. Local anesthetic using 30 mL of 0.25% bupivacaine was used. The skin was repaired with #3-0 Nylon simple and horizontal mattress sutures. A tension-free repair was obtained. Sterile dressings were applied. Needle and sponge counts were correct. There were no apparent complications. KIAH VAUGHN MD Jul 06, 2020 09:08
[2020-07-06] MEDS ORDERED: INSULIN LISPRO 100 UNIT/ML 3ML VIAL for OP,RR ONLY. SQ PRN (09:15)
[2020-07-06] MEDS ORDERED: oxyCODONE/APAP 5/325 1 TAB TABLET PO PRN (09:15)
[2020-07-06] MEDS ORDERED: HYDROmorphone 2 MG/ML VIAL IVP PRN (09:30)
[2020-07-06] MEDS ORDERED: fentaNYL PF VIAL 100 MCG/2 ML VIAL IVP PRN (09:30)
[2020-07-06] MEDS ORDERED: IV RINGERS,LACTATED 1000ML 1,000 ML IV SCH (09:30)
[2020-07-06] MEDS ORDERED: MORPHINE SULFATE 2 MG/ML VIAL. IVP PRN (09:30)
[2020-07-06] MEDS ORDERED: PROCHLORPERAZINE 10 MG/2 ML VIAL. IVP PRN (09:30)
--- NOTE | 2020-07-06 10:31 | PDOC ---
PROGRESS NOTES Date of Service: DATE: 07/06/20 TIME: 10:30 Chief Complaint Chief Complaint ASSESSMENT Peripheral vascular disease with diabetic toe. DIABETES A1C // 6.4 1-21 OSTEOMYELITIS prior left great toe amputation and prior right foot transmetatarsal amputation. bilateral lower extremity neuropathy which predates the diagnosis of diabetes plan left second toe, Amputation, toe; metatarsophalangeal joint ID CONSULT consulted Dr. Vaughn. IV antibiotics, wound care, home meds, DVT prophylaxis. Full code. P.r.n. pain meds, IV fluids, p.r.n. morphine, sliding scale insulin. [id number] screen P.r.n. Zofran. a1c ID CONSULT Change to Dapto and Zosyn. H/o MRSA review labs and cults and response. Blood cults at [facility] History of Present Illness History of Present Illness CHIEF COMPLAINT: Left foot wound. HISTORY OF PRESENT ILLNESS: The patient is a pleasant 59-year-old male who has severe peripheral vascular disease secondary to severe diabetes. Basically, he has already had a transmetatarsal on the right, now the left foot is infected. He had a first toe that was amputated on the left and they also did a metatarsal amputation, but now the second toe has been pointing down and rubbing on the ground, so he has developed some severe infection there. It is rated at 7/10. He has associated weakness. It has been coming on for several weeks to months, worse with moving, better with sitting still, described as very irritating. admitted the patient and consult Orthopedics. PAST MEDICAL HISTORY: Right transmetatarsal amputation, left first toe amputation, left first metatarsal amputation, diabetes, hypertension, hyperlipidemia, arthroscopy, depression and anxiety, muscle spasms. ALLERGIES: None. FAMILY HISTORY: Diabetes and hypertension. SOCIAL HISTORY: He does not drink, smoke or take drugs. MEDICATIONS: Reviewed. He is on meloxicam and Lyrica. REVIEW OF SYSTEMS: GENERAL: No history of weight change, weakness or fevers. SKIN: No bruising, hair changes or rashes. EYES: No blurred, double or loss of vision. NOSE AND THROAT: No history of nosebleeds, hoarseness or sore throat. HEART: No history of palpitations, chest pain or shortness of breath on exertion. LUNGS: Denies cough, hemoptysis, wheezing or shortness of breath. GASTROINTESTINAL: Denies changes in appetite, nausea, vomiting, diarrhea or constipation. GENITOURINARY: No history of frequency, urgency, hesitancy or nocturia. NEUROLOGIC: Denies history of numbness, tingling, tremor or weakness. PSYCHIATRIC: No history of panic, anxiety or depression. ENDOCRINE: No history of heat or cold intolerance, polyuria or polydipsia. EXTREMITIES: He complains of left foot toe infection. Vitals Vitals Vital Signs Date Time Temp Pulse Resp B/P (MAP) Pulse Ox O2 Delivery O2 Flow Rate FiO2 07/06/20 09:15 97.0 58 20 134/78 95 Room Air 97.0 Simple Mask 07/06/20 09:14 10.0 Physical Exam Physical Exam VITALS: Within normal limits and are stable. GENERAL: No apparent distress. Alert and oriented. HEENT: Normal cephalic atraumatic, external auditory canals are patent. EYES: Extraocular muscles are intact, pupils are equally round and reactive to light and accommodation. MUSCULOSKELETAL: Well developed, well nourished, good range of motion. ENDOCRINE: No thyromegaly was palpated. LYMPHATICS: No cervical chain or axillary nodes were noted. HEMATOPOIETIC: No bruising. NECK: Supple, no JVD, no thyromegaly was noted. LUNGS: Clear to auscultation in all lung king without rhonchi or wheezing. HEART: RRR, S1, S2 present. Peripheral pulses intact, no obvious murmurs were noted. ABDOMEN: Soft, nontender. Positive bowel sounds no organomegaly, normal bowel sounds. EXTREMITIES: The left second toe is infected. NEUROLOGIC: Normal speech, normal tone. A and O x 3, moves all extremities, no obvious focal deficits. PSYCHIATRIC: Normal affect, normal mood. Stable. SKIN: no jaundice. VASCULAR: Good capillary refill, neurovascular bundle appears to be intact. General: Alert, Oriented X3, Cooperative, No acute distress Heart: Regular rate Lungs: Clear Abdomen: Normal bowel sounds, Soft, No tenderness, No hepatosplenomegaly Extremities: No cyanosis, Other (When I saw his left foot previously and had severe circumferential swelling and erythema but that has completely resolved. Most of the foot has normal contours. He does have hammertoe deformities but within the limits of what is typical for his age. The great toe has been previously amputated and that incision is well-healed. The second toe has an open wound at the distal tip, and circumferential swelling consistent with osteomyelitis. The third fourth and fifth toes and metatarsal heads are all normal other than the hammertoe deformities, without open wounds swelling erythema or tenderness. Sensation is markedly decreased. Capillary refill appears satisfactory, pulses are difficult to palpate though.) Labs LABS Operative Note Date of Procedure: July 06, 2020 Pre-Op Diagnosis: * Type 2 diabetes mellitus with diabetic peripheral angiopathy with gangrene E11.52 * Other acute osteomyelitis, left ankle and foot M86.172 Post-Op Diagnosis: same Procedure: left second toe, Amputation, toe; metatarsophalangeal joint CPT 43902 Surgeon: Gregorio Vaughn MD Anesthesia: General EBL: 10 mL Specimens Obtained: left second toe for permanent specimen, and a deep bone swab culture was taken of the distal phalanx for microbiology Complications: none Drains: none Tourniquet: An Esmarch bandage was used as a tourniquet on the forefoot for about 10 minutes. Indications for Procedure: The patient is a 59-year-old with an open wound of the left second toe, and complications of diabetes. There is an open wound and possible exposed bone with persistent drainage, and has not resolved with nonoperative treatment. There is osteomyelitis HISTORY: Foot swelling and redness. Neuropathic arthropathy. No surface wounds or ulcer. No clinical sign of infection. TECHNIQUE: Routine pre and postcontrast images are obtained through the foot. COMPARISON: None, correlation with radiographs of 05/28/2019 and 05/03/2019. FINDINGS: Moderate motion degradation. Dislocation of the second MTP joint is again seen with proximal overriding, as identified on radiographs. Diffuse intramuscular edema and swelling as well as enhancement particularly around the second, third and fourth metatarsals. Fairly solid periosteal new bone formation involving the second and third metatarsals, and proximal second phalanx, as seen on radiographs. There is also more generalized soft tissue edema and enhancement about the midfoot. There is some collapse or fragmentation of the third and fourth metatarsal heads as seen on the radiographs. Diffuse marrow edema signal throughout the first, second and third and fourth metatarsals. There is also mild homogeneous loss of T1 marrow signal of these bones, fairly homogeneous and diffuse. There is also some marrow edema within the phalanges, but no definite loss of fatty marrow T1 signal. No large joint effusion. No organized fluid collection or drainable abscess is seen. There has been amputation of the first toe at the MTP joint. Lisfranc ligament complex appears intact. Tarsometatarsal alignment is grossly intact. The flexor hallucis longus tendon is thickened and retracted. No significant tendon sheath fluid is seen. IMPRESSION: 1. Diffuse soft tissue and intramuscular edema and enhancement around the foot, greatest around the second, third and fourth metatarsals. The imaging appearance suggests cellulitis. 2. Collapse and fragmentation of the third and fourth metatarsal heads, and fairly homogeneous periosteal new bone formation at the second and third metatarsals and second proximal phalanx. These findings are more typical of neuropathic arthropathy than acute osteomyelitis. Fairly homogeneous bone marrow edema throughout the first, second, third and fourth metatarsals with mild generalized loss of T1 signal and enhancement. The diffuse multifocal nature of this marrow change would also favor neuropathic arthropathy. Particularly in conjunction with the clinical information, osteomyelitis is considered much less likely, but given the severe nature of all of these changes, is difficult to exclude. 3. Findings were discussed with Dr. Gregorio Vaughn at the time of this report. Electronically signed by: Noel Mensah MD (05/29/2019 5:41 PM) [facility] Laboratory Tests Test 07/05/20 10:58 07/05/20 15:07 07/05/20 16:49 07/05/20 20:32 Glucose (Fingerstick) 117 mg/dL (70-99) 147 mg/dL (70-99) 169 mg/dL (70-99) White Blood Count 6.2 x10^3/uL (4.0-11.0) Red Blood Count 4.89 x10^6/uL (4.30-5.70) Hemoglobin 14.4 g/dL (13.0-17.5) Hematocrit 41.5 % (39.0-53.0) Mean Corpuscular Volume 85 fL (79-100) Mean Corpuscular Hemoglobin 29 pg (25-35) Mean Corpuscular Hemoglobin Concent 35 g/dL (31-37) Red Cell Distribution Width 12.7 % (11.5-14.5) Platelet Count 151 x10^3/uL (140-400) Neutrophils (%) (Auto) 55 % (31-73) Lymphocytes (%) (Auto) 31 % (24-48) Monocytes (%) (Auto) 11 % (0-9) Eosinophils (%) (Auto) 2 % (0-3) Basophils (%) (Auto) 1 % (0-3) Neutrophils # (Auto) 3.4 x10^3/uL (1.8-7.7) Lymphocytes # (Auto) 1.9 x10^3/uL (1.0-4.8) Monocytes # (Auto) 0.7 x10^3/uL (0.0-1.1) Eosinophils # (Auto) 0.1 x10^3/uL (0.0-0.7) Basophils # (Auto) 0.0 x10^3/uL (0.0-0.2) Sodium Level 138 mmol/L (136-145) Potassium Level 3.9 mmol/L (3.5-5.1) Chloride Level 105 mmol/L (98-107) Carbon Dioxide Level 26 mmol/L (21-32) Anion Gap 7 (6-14) Blood Urea Nitrogen 15 mg/dL (8-26) Creatinine 1.1 mg/dL (0.7-1.3) Estimated GFR (Cockcroft-Gault) 68.8 Glucose Level 122 mg/dL (70-99) Calcium Level 8.5 mg/dL (8.5-10.1) C-Reactive Protein, Quantitative 27.3 mg/L (0-3.3) Test 07/06/20 09:01 Glucose (Fingerstick) 135 mg/dL (70-99) Comment Review of Relevant I have reviewed the following items kathy (where applicable) has been applied. Labs Laboratory Tests Test 07/04/20 21:35 07/05/20 00:26 07/05/20 07:43 07/05/20 10:58 Glucose (Fingerstick) 144 mg/dL (70-99) 150 mg/dL (70-99) 117 mg/dL (70-99) SARS-CoV-2 Antigen (Rapid) Negative (NEGATIVE) Test 07/05/20 15:07 07/05/20 16:49 07/05/20 20:32 07/06/20 09:01 White Blood Count 6.2 x10^3/uL (4.0-11.0) Red Blood Count 4.89 x10^6/uL (4.30-5.70) Hemoglobin 14.4 g/dL (13.0-17.5) Hematocrit 41.5 % (39.0-53.0) Mean Corpuscular Volume 85 fL (79-100) Mean Corpuscular Hemoglobin 29 pg (25-35) Mean Corpuscular Hemoglobin Concent 35 g/dL (31-37) Red Cell Distribution Width 12.7 % (11.5-14.5) Platelet Count 151 x10^3/uL (140-400) Neutrophils (%) (Auto) 55 % (31-73) Lymphocytes (%) (Auto) 31 % (24-48) Monocytes (%) (Auto) 11 % (0-9) Eosinophils (%) (Auto) 2 % (0-3) Basophils (%) (Auto) 1 % (0-3) Neutrophils # (Auto) 3.4 x10^3/uL (1.8-7.7) Lymphocytes # (Auto) 1.9 x10^3/uL (1.0-4.8) Monocytes # (Auto) 0.7 x10^3/uL (0.0-1.1) Eosinophils # (Auto) 0.1 x10^3/uL (0.0-0.7) Basophils # (Auto) 0.0 x10^3/uL (0.0-0.2) Sodium Level 138 mmol/L (136-145) Potassium Level 3.9 mmol/L (3.5-5.1) Chloride Level 105 mmol/L (98-107) Carbon Dioxide Level 26 mmol/L (21-32) Anion Gap 7 (6-14) Blood Urea Nitrogen 15 mg/dL (8-26) Creatinine 1.1 mg/dL (0.7-1.3) Estimated GFR (Cockcroft-Gault) 68.8 Glucose Level 122 mg/dL (70-99) Calcium Level 8.5 mg/dL (8.5-10.1) C-Reactive Protein, Quantitative 27.3 mg/L (0-3.3) Glucose (Fingerstick) 147 mg/dL (70-99) 169 mg/dL (70-99) 135 mg/dL (70-99) Laboratory Tests Test 07/05/20 10:58 07/05/20 15:07 07/05/20 16:49 07/05/20 20:32 Glucose (Fingerstick) 117 mg/dL (70-99) 147 mg/dL (70-99) 169 mg/dL (70-99) White Blood Count 6.2 x10^3/uL (4.0-11.0) Red Blood Count 4.89 x10^6/uL (4.30-5.70) Hemoglobin 14.4 g/dL (13.0-17.5) Hematocrit 41.5 % (39.0-53.0) Mean Corpuscular Volume 85 fL (79-100) Mean Corpuscular Hemoglobin 29 pg (25-35) Mean Corpuscular Hemoglobin Concent 35 g/dL (31-37) Red Cell Distribution Width 12.7 % (11.5-14.5) Platelet Count 151 x10^3/uL (140-400) Neutrophils (%) (Auto) 55 % (31-73) Lymphocytes (%) (Auto) 31 % (24-48) Monocytes (%) (Auto) 11 % (0-9) Eosinophils (%) (Auto) 2 % (0-3) Basophils (%) (Auto) 1 % (0-3) Neutrophils # (Auto) 3.4 x10^3/uL (1.8-7.7) Lymphocytes # (Auto) 1.9 x10^3/uL (1.0-4.8) Monocytes # (Auto) 0.7 x10^3/uL (0.0-1.1) Eosinophils # (Auto) 0.1 x10^3/uL (0.0-0.7) Basophils # (Auto) 0.0 x10^3/uL (0.0-0.2) Sodium Level 138 mmol/L (136-145) Potassium Level 3.9 mmol/L (3.5-5.1) Chloride Level 105 mmol/L (98-107) Carbon Dioxide Level 26 mmol/L (21-32) Anion Gap 7 (6-14) Blood Urea Nitrogen 15 mg/dL (8-26) Creatinine 1.1 mg/dL (0.7-1.3) Estimated GFR (Cockcroft-Gault) 68.8 Glucose Level 122 mg/dL (70-99) Calcium Level 8.5 mg/dL (8.5-10.1) C-Reactive Protein, Quantitative 27.3 mg/L (0-3.3) Test 07/06/20 09:01 Glucose (Fingerstick) 135 mg/dL (70-99) Medications Current Medications Ondansetron HCl (Zofran) 4 mg PRN Q4HRS PRN IVP NAUSEA/VOMITING 1ST CHOICE Last administered on 07/05/20at 15:24; Start 07/04/20 at 21:45 Morphine Sulfate (Morphine Sulfate) 2 mg PRN Q2HR PRN IV MODERATE PAIN 4-6 Last administered on 07/05/20at 15:26; Start 07/04/20 at 21:45 Sodium Chloride 1,000 ml @ 100 mls/hr Q10H IV Last administered on 07/06/20at 00:15; Start 07/05/20 at 00:00 Acetaminophen (Tylenol) 650 mg PRN Q6HRS PRN PO MILD PAIN / TEMP > 100.5'F; Start 07/04/20 at 21:45 Insulin Human Lispro (HumaLOG) 0-7 UNITS TIDWMEALS SQ Last administered on 07/06/20at 09:12; Start 07/05/20 at 08:00 Dextrose (Dextrose 50%-Water Syringe) 12.5 gm PRN Q15MIN PRN IV SEE COMMENTS; Start 07/04/20 at 21:45 Morphine Sulfate (Morphine Sulfate) 3 mg PRN Q2HR PRN IV SEVERE PAIN 7-10 Last administered on 07/05/20at 21:19; Start 07/04/20 at 21:45 Bupivacaine HCl/ Epinephrine Bitart (Sensorcain-Epi 0.25% Kit) 30 ml STK-MED ONCE .ROUTE ; Start 07/06/20 at 07:11; Stop 07/06/20 at 07:11; Status DC Bupivacaine HCl/ Epinephrine Bitart (Sensorcain-Epi 0.25% Kit) 30 ml STK-MED ONCE .ROUTE ; Start 07/06/20 at 07:12; Stop 07/06/20 at 07:12; Status DC Propofol (Diprivan) 200 mg STK-MED ONCE IV ; Start 07/06/20 at 07:38; Stop 07/06/20 at 07:39; Status DC Lidocaine HCl (Lidocaine Pf 2% Vial) 5 ml STK-MED ONCE .ROUTE ; Start 07/06/20 at 07:38; Stop 07/06/20 at 07:39; Status DC Fentanyl Citrate (Fentanyl 2ml Vial) 100 mcg STK-MED ONCE .ROUTE ; Start 07/06/20 at 07:39; Stop 07/06/20 at 07:39; Status DC Cefazolin Sodium/ Dextrose 50 ml @ As Directed STK-MED ONCE IV ; Start 07/06/20 at 07:58; Stop 07/06/20 at 07:59; Status DC Bupivacaine HCl (Sensorcaine Mpf 0.25%) 30 ml STK-MED ONCE .ROUTE ; Start at 07:58; Stop 07/06/20 at 07:59; Status DC Ondansetron HCl (Zofran) 4 mg STK-MED ONCE .ROUTE ; Start 07/06/20 at 08:15; Stop 07/06/20 at 08:16; Status DC Dexamethasone Sodium Phosphate (Decadron) 4 mg STK-MED ONCE .ROUTE ; Start 07/06/20 at 08:15; Stop 07/06/20 at 08:16; Status DC Sevoflurane (Ultane) 15 ml STK-MED ONCE IH ; Start 07/06/20 at 08:15; Stop 07/06/20 at 08:16; Status DC Insulin Human Lispro (HumaLOG VIAL for OP,RR ONLY) 0-10 units PRN Q1HR PRN SQ PER PROTOCOL Last administered on 07/06/20at 09:13; Start 07/06/20 at 09:15; Stop 07/07/20 at 09:14 Fentanyl Citrate (Fentanyl 2ml Vial) 100 mcg STK-MED ONCE .ROUTE ; Start 07/06/20 at 09:10; Stop 07/06/20 at 09:10; Status DC Cefazolin Sodium/ Dextrose 50 ml @ 100 mls/hr Q6H IV ; Start 07/06/20 at 15:00; Stop 07/07/20 at 03:29 Aspirin (Ecotrin) 325 mg BID PO ; Start 07/06/20 at 21:00 Oxycodone/ Acetaminophen (Percocet 5/325) 1 tab PRN Q4HRS PRN PO MODERATE PAIN; Start 07/06/20 at 09:15 Vitamin D (Vitamin D3) 5,000 unit DAILY PO ; Start 07/07/20 at 09:00 Oxycodone/ Acetaminophen (Percocet 5/325) 2 tab PRN Q4HRS PRN PO SEVERE PAIN; Start 07/06/20 at 09:30 Fentanyl Citrate (Fentanyl 2ml Vial) 25 mcg PRN Q5MIN PRN IVP MILD PAIN 1-3 Last administered on 07/06/20at 09:14; Start 07/06/20 at 09:30; Stop 07/07/20 at 09:29 Fentanyl Citrate (Fentanyl 2ml Vial) 50 mcg PRN Q5MIN PRN IVP MODERATE PAIN 4- 6; Start 07/06/20 at 09:30; Stop 07/07/20 at 09:29 Morphine Sulfate (Morphine Sulfate) 1 mg PRN Q10MIN PRN IVP SEVERE PAIN 7-10; Start 07/06/20 at 09:30; Stop 07/07/20 at 09:29 Ringer's Solution 1,000 ml @ 30 mls/hr Q24H IV ; Start 07/06/20 at 09:30; Stop 07/06/20 at 21:29 Hydromorphone HCl (Dilaudid) 0.5 mg PRN Q10MIN PRN IVP SEVERE PAIN 7-10, 2nd CHOICE; Start 07/06/20 at 09:30; Stop 07/07/20 at 09:29 Prochlorperazine Edisylate (Compazine) 5 mg PACU PRN PRN IVP NAUSEA, MRX1; Start 07/06/20 at 09:30; Stop 07/07/20 at 09:29 Active Scripts Active Reported Lyrica (Pregabalin) 200 Mg Capsule 1 Cap PO BID Meloxicam 7.5 Mg Tablet 1 Tab PO DAILY 30 Days Vitals/I & O Vital Sign - Last 24 Hours 07/05/20 07/05/20 07/05/20 07/05/20 10:59 11:00 15:00 15:26 Temp 98.2 98.0 98.2 98.0 Pulse 64 120 Resp 16 18 B/P (MAP) 141/83 (102) 174/90 (118) Pulse Ox 94 92 O2 Delivery Room Air Room Air Room Air Room Air 07/05/20 07/05/20 07/05/20 07/05/20 15:56 19:00 20:00 21:19 Temp 97.8 97.8 Pulse 58 Resp 20 B/P (MAP) 131/79 (96) Pulse Ox 95 O2 Delivery Room Air Room Air Room Air Room Air 07/05/20 07/05/20 07/06/20 07/06/20 21:50 23:00 04:25 07:00 Temp 98.5 97.9 98.2 98.5 97.9 98.2 Pulse 64 59 68 Resp 20 18 16 B/P (MAP) 141/78 (99) 140/88 (105) 131/81 (98) Pulse Ox 93 93 95 O2 Delivery Room Air Room Air Room Air Room Air 07/06/20 07/06/20 07/06/20 07/06/20 07:56 08:48 08:48 09:00 Temp 97 97.0 Pulse 67 Resp 18 18 B/P (MAP) 120/65 Pulse Ox 99 95 O2 Delivery Room Air Room Air Room Air Room Air O2 Flow Rate 10 10 10.0 07/06/20 07/06/20 07/06/20 09:03 09:14 09:15 Temp 97.0 97.0 97.0 97.0 Pulse 67 58 Resp 16 20 20 B/P (MAP) 128/77 134/78 Pulse Ox 95 95 95 O2 Delivery Simple Mask Room Air Room Air Simple Mask O2 Flow Rate 10 10.0 Intake and Output 07/05/20 07/05/20 07/06/20 15:00 23:00 07:00 Output Total 0 ml Balance 0 ml Justicifation of Admission Dx: Justifications for Admission: Justification of Admission Dx: Yes Cellulitis: Cellulitis Comments: osteomyelitis GILL WILLIAMSON MD Jul 06, 2020 10:31
--- NOTE | 2020-07-06 11:14 | NUR ---
Faxed and called order for half shoe to [facility].
[2020-07-06] MEDS ORDERED: INSULIN LISPRO 300 UNITS/3 ML VIAL. SQ ONE ×2 (11:30→22:00)
[2020-07-06] MEDS: oxyCODONE/APAP 5/325 1 TAB TABLET PO PRN ×2 (11:48→17:10)
--- NOTE | 2020-07-06 17:51 | PDOC ---
Infectious Disease Note Vital Sign Vital Signs Vital Signs Date Time Temp Pulse Resp B/P (MAP) Pulse Ox O2 Delivery O2 Flow Rate FiO2 07/06/20 17:10 Room Air 07/06/20 15:00 97.9 61 16 120/68 (85) 92 97.9 07/06/20 09:14 10.0 Labs Lab Laboratory Tests Test 07/05/20 20:32 07/06/20 09:01 07/06/20 11:20 07/06/20 16:55 Glucose (Fingerstick) 169 mg/dL (70-99) 135 mg/dL (70-99) 190 mg/dL (70-99) 222 mg/dL (70-99) Objective Assessment Diabetic ulcer left second toe with exposed bone s/p closed amputation, Charcot's foot Peripheral neuropathy h/o MRSA Plan Plan of Care Consult to follow Thank you Change to Dapto and Zosyn. H/o MRSA F/u labs and cults and response. Blood cults at [place] also Foot without gross erythema/tracking or warmth. Will examine further after pjost op dressing removed Attending Co-Sign Attending Co-Sign The patient was seen and interviewed as well as examined at the bedside. The chart was reviewed. The case was discussed. Agree with the plan of care. ELOINA CALDWELL APRN Jul 06, 2020 17:51 ROYA WEBBER MD Jul 06, 2020 17:59
[2020-07-06] MEDS ORDERED: PIP/TAZO PER PHARMACY MC PRN (18:00)
[2020-07-06] MEDS: PIPERACILLIN/TAZOBACTAM 4.5 GM in IV NORMAL SALINE 100ML 100 ML IV SCH (18:13)
[2020-07-06] MEDS: ASPIRIN ENTERIC COATED 325 MG TABLET.DR. PO SCH (20:31)
[2020-07-06] MEDS: DAPTOmycin (GENERIC) IVPB 570 MG in IV NORMAL SALINE 50ML 50 ML IV SCH (20:33)
[2020-07-06] MEDS: MORPHINE SULFATE 4 MG/ML VIAL. IV PRN (20:42)
--- NOTE | 2020-07-06 20:49 | CONS ---
DATE OF CONSULTATION: 07/06/2020 REFERRING PHYSICIAN: Dr. Friedman. REASON FOR CONSULTATION: Diabetic foot, osteomyelitis. HISTORY OF PRESENT ILLNESS: The patient is a 59-year-old male who has a history of diabetes mellitus, nonhealing foot ulcers and osteomyelitis, status post previous right transmetatarsal amputation and left great toe amputation. He presented to [facility] in [place] with complaints of left second toe pain, redness and swelling. He was found to have ulcer with exposed bone. A foot x-ray showed bony destruction, distal phalanx, left second toe with soft tissue swelling; and bony changes suggestive of chronic osteomyelitis, second, third, fourth metatarsal heads. He was dosed with cefazolin. He was transferred to [place] and taken to the OR earlier today for closed amputation performed by Dr. Vaughn. Intraoperative cultures were sent and awaiting results. The patient verbalizes discomfort. His pain is controlled. He denies fevers, chills, sweats or body aches. He denies nausea, vomiting, diarrhea. Denies rash or itching. Denies shortness of air or wheezing. PAST MEDICAL HISTORY: Diabetes mellitus, previous history of osteomyelitis of left great toe and several toes of his right foot, peripheral neuropathy, hypertension, history of depression, history of methicillin-resistant staphylococcus aureus and Charcot foot. PAST SURGICAL HISTORY: Right transmetatarsal amputation, left great toe amputation, subdural hematoma and craniotomy in 2014, L4-L5 fusion, Florentino fundoplication, removal of bursa left knee and arthroscopy. FAMILY HISTORY: Diabetes, hyperlipidemia and hypertension. SOCIAL HISTORY: History of IV drug use and alcohol abuse. Nonsmoker. ALLERGIES: No known drug allergies. MEDICATIONS: Reviewed on MAR include cefazolin. REVIEW OF SYSTEMS: Per history of present illness, otherwise all other review of systems are negative. PHYSICAL EXAMINATION: VITAL SIGNS: Temperature is 97.9, blood pressure 120/68, heart rate 61, respiratory rate 16, pulse oximetry 92% on room air. GENERAL: The patient is propped up in bed, alert, in no distress. HEENT: Pupils equally round, normal conjunctivae not. Oropharynx pink and moist, no lesions seen. NECK: Supple. LUNGS: Clear to auscultation. HEART: Normal S1 and S2. ABDOMEN: Obese, soft, nontender with bowel sounds present. EXTREMITIES: No gross edema or cyanosis. Postop dressing, left foot in place, not taken down. SKIN: Warm to touch. No signs of rash. NEUROLOGIC: Alert and answering questions appropriately. LABORATORY DATA: Recent WBC 6.2, hemoglobin 14.4, platelets 151,000. Sodium 138, potassium 3.9, creatinine 1.1, BUN 15, glucose 122. CRP 27.3. COVID PCR negative. Intraoperative cultures 07/06 pending. Foot x-ray per history of present illness. Blood cultures ([facility]) negative to date. Previous MRI in 2019 showed findings typical of neuropathic arthropathy. IMPRESSION: 1. Diabetic ulcer, left second toe with exposed bone, status post closed amputation on 07/06/2020. 2. Charcot foot. 3. Peripheral neuropathy. 4. History of methicillin-resistant Staphylococcus aureus. PLAN: 1. Recommend switching cefazolin to daptomycin and Zosyn. 2. Monitor laboratory values and temperature. 3. Follow up on cultures. 4. Plan to examine further after postop dressing removed. Thank you, Dr. Friedman, for asking us to participate in this patient's care. Should you have further questions or concerns, please call. The patient is seen and examined and plan of care implemented by Dr. Roya Webber. ROYA WEBBER MD DR: ANN/marquis JOB#: [id number] / [id number] KARINA
[2020-07-07] MEDS: oxyCODONE/APAP 5/325 1 TAB TABLET PO PRN ×4 (00:04→21:05)
[2020-07-07] MEDS: PIPERACILLIN/TAZOBACTAM 4.5 GM in IV NORMAL SALINE 100ML 100 ML IV SCH ×5 (00:06→23:39)
[2020-07-07] MEDS: IV NORMAL SALINE 1000ML BAG 1,000 ML IV SCH ×3 (02:00→22:00)
[2020-07-07 03:00] VITALS: BP 163/78
[2020-07-07] MEDS: MORPHINE SULFATE 4 MG/ML VIAL. IV PRN (03:17)
[2020-07-07 06:26] LABS: HEMOGLOBIN A1C 6.8 % (4.8-5.6)
[2020-07-07 07:00] VITALS: BP 131/77
[2020-07-07] MEDS: INSULIN LISPRO 300 UNITS/3 ML VIAL. SQ SCH ×3 (08:00→16:58)
[2020-07-07 08:08] LABS: BASO % 0 % (0-3); EOS # 0.1 x10^3/uL (0.0-0.7); EOS % 1 % (0-3); HEMATOCRIT 40.9 % (39.0-53.0); HEMOGLOBIN 14.3 g/dL (13.0-17.5); LYMPH % 27 % (24-48); MEAN CORPUSCULAR HEMOGLOBIN 29 pg (25-35); MEAN CORPUSCULAR HGB CONC 35 g/dL (31-37); MEAN CORPUSCULAR VOLUME 84 fL (79-100); MONO # 0.5 x10^3/uL (0.0-1.1); MONO % 7 % (0-9); NEUT # 4.7 x10^3/uL (1.8-7.7); NEUT % 64 % (31-73); PLATELET COUNT 156 x10^3/uL (140-400); RED BLOOD COUNT 4.89 x10^6/uL (4.30-5.70); RED CELL DISTRIBUTION WIDTH 12.5 % (11.5-14.5); WHITE BLOOD COUNT 7.3 x10^3/uL (4.0-11.0)
[2020-07-07 08:25] LABS: CALCIUM 8.6 mg/dL (8.5-10.1); CREATININE 1.1 mg/dL (0.7-1.3); GFR 68.8
[2020-07-07 08:27] LABS: POTASSIUM 3.9 mmol/L (3.5-5.1)
[2020-07-07] MEDS: ASPIRIN ENTERIC COATED 325 MG TABLET.DR. PO SCH ×2 (09:02→20:52)
[2020-07-07] MEDS: CHOLECALCIFEROL (VITAMIN D3) 5,000 UNIT CAPSULE PO SCH (09:02)
--- NOTE | 2020-07-07 09:21 | PDOC ---
Infectious Disease Note Subjective Subjective Comfortable. denies F/C/N/V/D/muscle aches/SOA/rash. ROS ROS as mentioned above. Vital Sign Vital Signs Vital Signs Date Time Temp Pulse Resp B/P (MAP) Pulse Ox O2 Delivery O2 Flow Rate FiO2 07/07/20 09:02 Room Air 07/07/20 07:00 97.6 60 18 131/77 (95) 95 97.6 07/07/20 03:17 10.0 Physical Exam PHYSICAL EXAM GENERAL: Propped up in bed, alert, in no distress. HEENT: Pupils equally round, normal conjunctivae not. Oropharynx pink and moist, no lesions seen. NECK: Supple. LUNGS: Clear to auscultation. HEART: Normal S1 and S2. ABDOMEN: Obese, soft, nontender with bowel sounds present. EXTREMITIES: No gross edema or cyanosis. Postop dressing, left foot in place, not taken down. SKIN: Warm to touch. No signs of rash. NEUROLOGIC: Alert and answering questions appropriate PIV Labs Lab Laboratory Tests Test 07/06/20 11:20 07/06/20 16:55 07/06/20 21:32 07/07/20 07:29 Glucose (Fingerstick) 190 mg/dL (70-99) 222 mg/dL (70-99) 196 mg/dL (70-99) 140 mg/dL (70-99) Test 07/07/20 07:30 White Blood Count 7.3 x10^3/uL (4.0-11.0) Red Blood Count 4.89 x10^6/uL (4.30-5.70) Hemoglobin 14.3 g/dL (13.0-17.5) Hematocrit 40.9 % (39.0-53.0) Mean Corpuscular Volume 84 fL (79-100) Mean Corpuscular Hemoglobin 29 pg (25-35) Mean Corpuscular Hemoglobin Concent 35 g/dL (31-37) Red Cell Distribution Width 12.5 % (11.5-14.5) Platelet Count 156 x10^3/uL (140-400) Neutrophils (%) (Auto) 64 % (31-73) Lymphocytes (%) (Auto) 27 % (24-48) Monocytes (%) (Auto) 7 % (0-9) Eosinophils (%) (Auto) 1 % (0-3) Basophils (%) (Auto) 0 % (0-3) Neutrophils # (Auto) 4.7 x10^3/uL (1.8-7.7) Lymphocytes # (Auto) 2.0 x10^3/uL (1.0-4.8) Monocytes # (Auto) 0.5 x10^3/uL (0.0-1.1) Eosinophils # (Auto) 0.1 x10^3/uL (0.0-0.7) Basophils # (Auto) 0.0 x10^3/uL (0.0-0.2) Sodium Level 141 mmol/L (136-145) Potassium Level 3.9 mmol/L (3.5-5.1) Chloride Level 105 mmol/L (98-107) Carbon Dioxide Level 27 mmol/L (21-32) Anion Gap 9 (6-14) Blood Urea Nitrogen 17 mg/dL (8-26) Creatinine 1.1 mg/dL (0.7-1.3) Estimated GFR (Cockcroft-Gault) 68.8 Glucose Level 135 mg/dL (70-99) Calcium Level 8.6 mg/dL (8.5-10.1) Micro 07/06. Left foot ANAEROBIC-AEROBIC CULTURE Preliminary Preliminary FEW GRAM POSITIVE COCCI on 07/07/20 at 0846 FINAL ID= [BETA STREP GROUP G] Objective Assessment Diabetic ulcer, left second toe with exposed bone, status post closed amputation on 07/06/2020. Group G strep so far. Charcot foot. Peripheral neuropathy. History of MRSA. Plan Plan of Care Daptomycin and Zosyn. Monitor laboratory values and temperature. Follow up on cultures. Plan to examine further after postop dressing removed. Constipation and no Flatus - d/w nursing will get laxative Attending Co-Sign Attending Co-Sign The patient was seen and interviewed as well as examined at the bedside. The chart was reviewed. The case was discussed. Agree with the plan of care. ELOINA CALDWELL APRN Jul 07, 2020 09:21 ROYA WEBBER MD Jul 07, 2020 14:23
[2020-07-07 11:00] VITALS: BP 120/67
--- NOTE | 2020-07-07 11:38 | PDOC ---
PROGRESS NOTES Date of Service: DATE: 07/07/20 TIME: 11:38 Chief Complaint Chief Complaint ASSESSMENT Peripheral vascular disease with diabetic toe. DIABETES A1C // 6.4 1-21 OSTEOMYELITIS prior left great toe amputation and prior right foot transmetatarsal amputation. bilateral lower extremity neuropathy which predates the diagnosis of diabetes plan left second toe, Amputation, toe; metatarsophalangeal joint ID CONSULT consulted Dr. Vaughn. IV antibiotics, wound care, home meds, DVT prophylaxis. Full code. P.r.n. pain meds, IV fluids, p.r.n. morphine, sliding scale insulin. [id number] screen P.r.n. Zofran. a1c ID CONSULT Change to Dapto and Zosyn. H/o MRSA review labs and cults and response. Blood cults at [place] ANAEROBIC-AEROBIC CULTURE Preliminary Preliminary FEW GRAM POSITIVE COCCI on 07/07/20 at 0846 FINAL ID= [BETA STREP GROUP G] History of Present Illness History of Present Illness CHIEF COMPLAINT: Left foot wound. HISTORY OF PRESENT ILLNESS: The patient is a pleasant 59-year-old male who has severe peripheral vascular disease secondary to severe diabetes. Basically, he has already had a transmetatarsal on the right, now the left foot is infected. He had a first toe that was amputated on the left and they also did a metatarsal amputation, but now the second toe has been pointing down and rubbing on the ground, so he has developed some severe infection there. It is rated at 7/10. He has associated weakness. It has been coming on for several weeks to months, worse with moving, better with sitting still, described as very irritating. admitted the patient and consult Orthopedics. PAST MEDICAL HISTORY: Right transmetatarsal amputation, left first toe amputation, left first metatarsal amputation, diabetes, hypertension, hyperlipidemia, arthroscopy, depression and anxiety, muscle spasms. ALLERGIES: None. FAMILY HISTORY: Diabetes and hypertension. SOCIAL HISTORY: He does not drink, smoke or take drugs. MEDICATIONS: Reviewed. He is on meloxicam and Lyrica. REVIEW OF SYSTEMS: GENERAL: No history of weight change, weakness or fevers. SKIN: No bruising, hair changes or rashes. EYES: No blurred, double or loss of vision. NOSE AND THROAT: No history of nosebleeds, hoarseness or sore throat. HEART: No history of palpitations, chest pain or shortness of breath on exertion. LUNGS: Denies cough, hemoptysis, wheezing or shortness of breath. GASTROINTESTINAL: Denies changes in appetite, nausea, vomiting, diarrhea or constipation. GENITOURINARY: No history of frequency, urgency, hesitancy or nocturia. NEUROLOGIC: Denies history of numbness, tingling, tremor or weakness. PSYCHIATRIC: No history of panic, anxiety or depression. ENDOCRINE: No history of heat or cold intolerance, polyuria or polydipsia. EXTREMITIES: He complains of left foot toe infection. 07/07 PAIN BETTER, appetite good, cont iv antibiotics D/W RN Vitals Vitals Vital Signs Date Time Temp Pulse Resp B/P (MAP) Pulse Ox O2 Delivery O2 Flow Rate FiO2 07/07/20 11:00 98.0 59 18 120/67 (84) 96 Room Air 98.0 07/07/20 03:17 10.0 Physical Exam Physical Exam GENERAL: Propped up in bed, alert, in no distress. HEENT: Pupils equally round, normal conjunctivae not. Oropharynx pink and moist, no lesions seen. NECK: Supple. LUNGS: Clear to auscultation. HEART: Normal S1 and S2. ABDOMEN: Obese, soft, nontender with bowel sounds present. EXTREMITIES: No gross edema or cyanosis. Postop dressing, left foot in place, not taken down. SKIN: Warm to touch. No signs of rash. NEUROLOGIC: Alert and answering questions appropriate PIV General: Alert, Oriented X3, Cooperative, No acute distress Heart: Regular rate, Normal S1, Normal S2 Lungs: Clear Abdomen: Normal bowel sounds, Soft, No tenderness, No hepatosplenomegaly Extremities: No cyanosis, Other Labs LABS OMMENTS: L SECOND TOE Procedure Result GRAM STAIN PENDING ANAEROBIC-AEROBIC CULTURE Preliminary Preliminary FEW GRAM POSITIVE COCCI on 07/07/20 at 0846 FINAL ID= [BETA STREP GROUP G] BETA STREP GROUP G Unless otherwise specified, Testing Performed by: [address] [address] For Inquires, the Physician may contact the Microbiology department at [phone] Laboratory Tests Test 07/06/20 16:55 07/06/20 21:32 07/07/20 07:29 07/07/20 07:30 Glucose (Fingerstick) 222 mg/dL (70-99) 196 mg/dL (70-99) 140 mg/dL (70-99) White Blood Count 7.3 x10^3/uL (4.0-11.0) Red Blood Count 4.89 x10^6/uL (4.30-5.70) Hemoglobin 14.3 g/dL (13.0-17.5) Hematocrit 40.9 % (39.0-53.0) Mean Corpuscular Volume 84 fL (79-100) Mean Corpuscular Hemoglobin 29 pg (25-35) Mean Corpuscular Hemoglobin Concent 35 g/dL (31-37) Red Cell Distribution Width 12.5 % (11.5-14.5) Platelet Count 156 x10^3/uL (140-400) Neutrophils (%) (Auto) 64 % (31-73) Lymphocytes (%) (Auto) 27 % (24-48) Monocytes (%) (Auto) 7 % (0-9) Eosinophils (%) (Auto) 1 % (0-3) Basophils (%) (Auto) 0 % (0-3) Neutrophils # (Auto) 4.7 x10^3/uL (1.8-7.7) Lymphocytes # (Auto) 2.0 x10^3/uL (1.0-4.8) Monocytes # (Auto) 0.5 x10^3/uL (0.0-1.1) Eosinophils # (Auto) 0.1 x10^3/uL (0.0-0.7) Basophils # (Auto) 0.0 x10^3/uL (0.0-0.2) Sodium Level 141 mmol/L (136-145) Potassium Level 3.9 mmol/L (3.5-5.1) Chloride Level 105 mmol/L (98-107) Carbon Dioxide Level 27 mmol/L (21-32) Anion Gap 9 (6-14) Blood Urea Nitrogen 17 mg/dL (8-26) Creatinine 1.1 mg/dL (0.7-1.3) Estimated GFR (Cockcroft-Gault) 68.8 Glucose Level 135 mg/dL (70-99) Calcium Level 8.6 mg/dL (8.5-10.1) Test 07/07/20 10:44 Glucose (Fingerstick) 122 mg/dL (70-99) Comment Review of Relevant I have reviewed the following items kathy (where applicable) has been applied. Labs Laboratory Tests Test 07/05/20 15:07 07/05/20 16:49 07/05/20 20:32 07/06/20 09:01 White Blood Count 6.2 x10^3/uL (4.0-11.0) Red Blood Count 4.89 x10^6/uL (4.30-5.70) Hemoglobin 14.4 g/dL (13.0-17.5) Hematocrit 41.5 % (39.0-53.0) Mean Corpuscular Volume 85 fL (79-100) Mean Corpuscular Hemoglobin 29 pg (25-35) Mean Corpuscular Hemoglobin Concent 35 g/dL (31-37) Red Cell Distribution Width 12.7 % (11.5-14.5) Platelet Count 151 x10^3/uL (140-400) Neutrophils (%) (Auto) 55 % (31-73) Lymphocytes (%) (Auto) 31 % (24-48) Monocytes (%) (Auto) 11 % (0-9) Eosinophils (%) (Auto) 2 % (0-3) Basophils (%) (Auto) 1 % (0-3) Neutrophils # (Auto) 3.4 x10^3/uL (1.8-7.7) Lymphocytes # (Auto) 1.9 x10^3/uL (1.0-4.8) Monocytes # (Auto) 0.7 x10^3/uL (0.0-1.1) Eosinophils # (Auto) 0.1 x10^3/uL (0.0-0.7) Basophils # (Auto) 0.0 x10^3/uL (0.0-0.2) Sodium Level 138 mmol/L (136-145) Potassium Level 3.9 mmol/L (3.5-5.1) Chloride Level 105 mmol/L (98-107) Carbon Dioxide Level 26 mmol/L (21-32) Anion Gap 7 (6-14) Blood Urea Nitrogen 15 mg/dL (8-26) Creatinine 1.1 mg/dL (0.7-1.3) Estimated GFR (Cockcroft-Gault) 68.8 Glucose Level 122 mg/dL (70-99) Hemoglobin A1c 6.8 % (4.8-5.6) Calcium Level 8.5 mg/dL (8.5-10.1) C-Reactive Protein, Quantitative 27.3 mg/L (0-3.3) Glucose (Fingerstick) 147 mg/dL (70-99) 169 mg/dL (70-99) 135 mg/dL (70-99) Test 07/06/20 11:20 07/06/20 16:55 07/06/20 21:32 07/07/20 07:29 Glucose (Fingerstick) 190 mg/dL (70-99) 222 mg/dL (70-99) 196 mg/dL (70-99) 140 mg/dL (70-99) Test 07/07/20 07:30 07/07/20 10:44 White Blood Count 7.3 x10^3/uL (4.0-11.0) Red Blood Count 4.89 x10^6/uL (4.30-5.70) Hemoglobin 14.3 g/dL (13.0-17.5) Hematocrit 40.9 % (39.0-53.0) Mean Corpuscular Volume 84 fL (79-100) Mean Corpuscular Hemoglobin 29 pg (25-35) Mean Corpuscular Hemoglobin Concent 35 g/dL (31-37) Red Cell Distribution Width 12.5 % (11.5-14.5) Platelet Count 156 x10^3/uL (140-400) Neutrophils (%) (Auto) 64 % (31-73) Lymphocytes (%) (Auto) 27 % (24-48) Monocytes (%) (Auto) 7 % (0-9) Eosinophils (%) (Auto) 1 % (0-3) Basophils (%) (Auto) 0 % (0-3) Neutrophils # (Auto) 4.7 x10^3/uL (1.8-7.7) Lymphocytes # (Auto) 2.0 x10^3/uL (1.0-4.8) Monocytes # (Auto) 0.5 x10^3/uL (0.0-1.1) Eosinophils # (Auto) 0.1 x10^3/uL (0.0-0.7) Basophils # (Auto) 0.0 x10^3/uL (0.0-0.2) Sodium Level 141 mmol/L (136-145) Potassium Level 3.9 mmol/L (3.5-5.1) Chloride Level 105 mmol/L (98-107) Carbon Dioxide Level 27 mmol/L (21-32) Anion Gap 9 (6-14) Blood Urea Nitrogen 17 mg/dL (8-26) Creatinine 1.1 mg/dL (0.7-1.3) Estimated GFR (Cockcroft-Gault) 68.8 Glucose Level 135 mg/dL (70-99) Calcium Level 8.6 mg/dL (8.5-10.1) Glucose (Fingerstick) 122 mg/dL (70-99) Laboratory Tests Test 07/06/20 16:55 07/06/20 21:32 07/07/20 07:29 07/07/20 07:30 Glucose (Fingerstick) 222 mg/dL (70-99) 196 mg/dL (70-99) 140 mg/dL (70-99) White Blood Count 7.3 x10^3/uL (4.0-11.0) Red Blood Count 4.89 x10^6/uL (4.30-5.70) Hemoglobin 14.3 g/dL (13.0-17.5) Hematocrit 40.9 % (39.0-53.0) Mean Corpuscular Volume 84 fL (79-100) Mean Corpuscular Hemoglobin 29 pg (25-35) Mean Corpuscular Hemoglobin Concent 35 g/dL (31-37) Red Cell Distribution Width 12.5 % (11.5-14.5) Platelet Count 156 x10^3/uL (140-400) Neutrophils (%) (Auto) 64 % (31-73) Lymphocytes (%) (Auto) 27 % (24-48) Monocytes (%) (Auto) 7 % (0-9) Eosinophils (%) (Auto) 1 % (0-3) Basophils (%) (Auto) 0 % (0-3) Neutrophils # (Auto) 4.7 x10^3/uL (1.8-7.7) Lymphocytes # (Auto) 2.0 x10^3/uL (1.0-4.8) Monocytes # (Auto) 0.5 x10^3/uL (0.0-1.1) Eosinophils # (Auto) 0.1 x10^3/uL (0.0-0.7) Basophils # (Auto) 0.0 x10^3/uL (0.0-0.2) Sodium Level 141 mmol/L (136-145) Potassium Level 3.9 mmol/L (3.5-5.1) Chloride Level 105 mmol/L (98-107) Carbon Dioxide Level 27 mmol/L (21-32) Anion Gap 9 (6-14) Blood Urea Nitrogen 17 mg/dL (8-26) Creatinine 1.1 mg/dL (0.7-1.3) Estimated GFR (Cockcroft-Gault) 68.8 Glucose Level 135 mg/dL (70-99) Calcium Level 8.6 mg/dL (8.5-10.1) Test 07/07/20 10:44 Glucose (Fingerstick) 122 mg/dL (70-99) Microbiology 07/06/20 Gram Stain, Resulted Pending 07/06/20 Aerobic and Anaerobic Culture - Preliminary, Resulted Medications Current Medications Ondansetron HCl (Zofran) 4 mg PRN Q4HRS PRN IVP NAUSEA/VOMITING 1ST CHOICE Last administered on 07/05/20at 15:24; Start 07/04/20 at 21:45 Morphine Sulfate (Morphine Sulfate) 2 mg PRN Q2HR PRN IV MODERATE PAIN 4-6 Last administered on 07/05/20at 15:26; Start 07/04/20 at 21:45 Sodium Chloride 1,000 ml @ 100 mls/hr Q10H IV Last administered on 07/06/20at 14:41; Start 07/05/20 at 00:00 Acetaminophen (Tylenol) 650 mg PRN Q6HRS PRN PO MILD PAIN / TEMP > 100.5'F; Start 07/04/20 at 21:45 Insulin Human Lispro (HumaLOG) 0-7 UNITS TIDWMEALS SQ Last administered on at 17:07; Start 07/05/20 at 08:00 Dextrose (Dextrose 50%-Water Syringe) 12.5 gm PRN Q15MIN PRN IV SEE COMMENTS; Start 07/04/20 at 21:45 Morphine Sulfate (Morphine Sulfate) 3 mg PRN Q2HR PRN IV SEVERE PAIN 7-10 Last administered on 07/07/20at 03:17; Start 07/04/20 at 21:45 Bupivacaine HCl/ Epinephrine Bitart (Sensorcain-Epi 0.25% Kit) 30 ml STK-MED ONCE .ROUTE ; Start 07/06/20 at 07:11; Stop 07/06/20 at 07:11; Status DC Bupivacaine HCl/ Epinephrine Bitart (Sensorcain-Epi 0.25% Kit) 30 ml STK-MED ONCE .ROUTE ; Start 07/06/20 at 07:12; Stop 07/06/20 at 07:12; Status DC Propofol (Diprivan) 200 mg STK-MED ONCE IV ; Start 07/06/20 at 07:38; Stop 07/06/20 at 07:39; Status DC Lidocaine HCl (Lidocaine Pf 2% Vial) 5 ml STK-MED ONCE .ROUTE ; Start 07/06/20 at 07:38; Stop 07/06/20 at 07:39; Status DC Fentanyl Citrate (Fentanyl 2ml Vial) 100 mcg STK-MED ONCE .ROUTE ; Start 07/06/20 at 07:39; Stop 07/06/20 at 07:39; Status DC Cefazolin Sodium/ Dextrose 50 ml @ As Directed STK-MED ONCE IV ; Start 07/06/20 at 07:58; Stop 07/06/20 at 07:59; Status DC Bupivacaine HCl (Sensorcaine Mpf 0.25%) 30 ml STK-MED ONCE .ROUTE Last administered on 07/06/20at 08:37; Start 07/06/20 at 07:58; Stop 07/06/20 at 07:59; Status DC Ondansetron HCl (Zofran) 4 mg STK-MED ONCE .ROUTE ; Start 07/06/20 at 08:15; Stop 07/06/20 at 08:16; Status DC Dexamethasone Sodium Phosphate (Decadron) 4 mg STK-MED ONCE .ROUTE ; Start 07/06/20 at 08:15; Stop 07/06/20 at 08:16; Status DC Sevoflurane (Ultane) 15 ml STK-MED ONCE IH ; Start 07/06/20 at 08:15; Stop 07/06/20 at 08:16; Status DC Insulin Human Lispro (HumaLOG VIAL for OP,RR ONLY) 0-10 units PRN Q1HR PRN SQ PER PROTOCOL Last administered on 07/06/20at 09:13; Start 07/06/20 at 09:15; Stop 07/07/20 at 09:14; Status DC Fentanyl Citrate (Fentanyl 2ml Vial) 100 mcg STK-MED ONCE .ROUTE ; Start 07/06/20 at 09:10; Stop 07/06/20 at 09:10; Status DC Cefazolin Sodium/ Dextrose 50 ml @ 100 mls/hr Q6H IV Last administered on 07/07/20at 03:01; Start 07/06/20 at 15:00; Stop 07/07/20 at 03:29; Status DC Aspirin (Ecotrin) 325 mg BID PO Last administered on 07/07/20at 09:02; Start 07/06/20 at 21:00 Oxycodone/ Acetaminophen (Percocet 5/325) 1 tab PRN Q4HRS PRN PO MODERATE PAIN; Start 07/06/20 at 09:15 Vitamin D (Vitamin D3) 5,000 unit DAILY PO Last administered on 07/07/20at 09:02; Start 07/07/20 at 09:00 Oxycodone/ Acetaminophen (Percocet 5/325) 2 tab PRN Q4HRS PRN PO SEVERE PAIN Last administered on 07/07/20at 09:02; Start 07/06/20 at 09:30 Fentanyl Citrate (Fentanyl 2ml Vial) 25 mcg PRN Q5MIN PRN IVP MILD PAIN 1-3 Last administered on 07/06/20at 09:14; Start 07/06/20 at 09:30; Stop 07/07/20 at 09:29; Status DC Fentanyl Citrate (Fentanyl 2ml Vial) 50 mcg PRN Q5MIN PRN IVP MODERATE PAIN 4- 6; Start 07/06/20 at 09:30; Stop 07/07/20 at 09:29; Status DC Morphine Sulfate (Morphine Sulfate) 1 mg PRN Q10MIN PRN IVP SEVERE PAIN 7-10; Start 07/06/20 at 09:30; Stop 07/07/20 at 09:29; Status DC Ringer's Solution 1,000 ml @ 30 mls/hr Q24H IV ; Start 07/06/20 at 09:30; Stop 07/06/20 at 21:29; Status DC Hydromorphone HCl (Dilaudid) 0.5 mg PRN Q10MIN PRN IVP SEVERE PAIN 7-10, 2nd CHOICE; Start 07/06/20 at 09:30; Stop 07/07/20 at 09:29; Status DC Prochlorperazine Edisylate (Compazine) 5 mg PACU PRN PRN IVP NAUSEA, MRX1; Start 07/06/20 at 09:30; Stop 07/07/20 at 09:29; Status DC Insulin Human Lispro (HumaLOG) 3 units 1X ONCE SQ Last administered on 07/06/20at 11:48; Start 07/06/20 at 11:30; Stop 07/06/20 at 11:31; Status DC Daptomycin 570 mg/ Sodium Chloride 50 ml @ 100 mls/hr Q24H IV Last administered on 07/06/20at 20:33; Start 07/06/20 at 20:00 Piperacillin Sod/ Tazobactam Sod (Zosyn Per Pharmacy) 1 each PRN DAILY PRN MC SEE COMMENTS; Start 07/06/20 at 18:00 Piperacillin Sod/ Tazobactam Sod 4.5 gm/Sodium Chloride 100 ml @ 200 mls/hr Q6HRS IV Last administered on 07/07/20at 05:51; Start 07/06/20 at 18:30 Insulin Human Lispro (HumaLOG) 3 units 1X ONCE SQ Last administered on 07/06/20at 21:59; Start 07/06/20 at 22:00; Stop 07/06/20 at 22:01; Status DC Active Scripts Active Reported Lyrica (Pregabalin) 200 Mg Capsule 1 Cap PO BID Meloxicam 7.5 Mg Tablet 1 Tab PO DAILY 30 Days Vitals/I & O Vital Sign - Last 24 Hours 07/06/20 07/06/20 07/06/20 07/06/20 11:48 12:30 12:53 15:00 Temp 97.9 97.9 Pulse 64 61 Resp 16 B/P (MAP) 129/76 (93) 120/68 (85) Pulse Ox 92 92 O2 Delivery Room Air Room Air Room Air 07/06/20 07/06/20 07/06/20 07/06/20 17:10 18:12 19:00 20:00 Temp 98.1 98.1 Pulse 64 Resp 16 B/P (MAP) 131/72 (91) Pulse Ox 94 O2 Delivery Room Air Room Air Room Air 07/06/20 07/06/20 07/06/20 07/07/20 20:42 21:15 23:00 00:04 Temp 97.9 97.9 Pulse 63 Resp 18 B/P (MAP) 136/70 (92) Pulse Ox 94 94 O2 Delivery Room Air Room Air Room Air O2 Flow Rate 10.0 07/07/20 07/07/20 07/07/20 07/07/20 01:04 03:00 03:17 04:00 Temp 98.1 98.1 Pulse 66 Resp 20 B/P (MAP) 163/78 (106) Pulse Ox 96 94 O2 Delivery Room Air Room Air Room Air O2 Flow Rate 10.0 07/07/20 07/07/20 07/07/20 07/07/20 07:00 08:05 09:02 10:05 Temp 97.6 97.6 Pulse 60 Resp 18 B/P (MAP) 131/77 (95) Pulse Ox 95 O2 Delivery Room Air Room Air Room Air Room Air 07/07/20 11:00 Temp 98.0 98.0 Pulse 59 Resp 18 B/P (MAP) 120/67 (84) Pulse Ox 96 O2 Delivery Room Air Intake and Output 07/06/20 07/06/20 07/07/20 15:00 23:00 07:00 Intake Total 750 ml Output Total 625 ml 500 ml 700 ml Balance 125 ml -500 ml -700 ml Justicifation of Admission Dx: Justifications for Admission: Justification of Admission Dx: Yes Cellulitis: Cellulitis GILL WILLIAMSON MD Jul 07, 2020 11:38
[2020-07-07] MEDS ORDERED: POLYETHYLENE GLYCOL 3350 17 GM PACKET. PO PRN (14:30)
[2020-07-07 15:00] VITALS: BP 147/89
[2020-07-07] MEDS: DOCUSATE SODIUM 100 MG CAPSULE. PO SCH (16:46)
[2020-07-07 19:00] VITALS: BP 142/69
--- NOTE | 2020-07-07 19:22 | NUR ---
IV infiltrated. Pt requesting a medication to be injected into hand to disperse the fluids. Called pharmacy and spoke to Tabatha she does not recommend this at this time. She recommends cold compress and elevation. Will update patient.
[2020-07-07] MEDS: DAPTOmycin (GENERIC) IVPB 570 MG in IV NORMAL SALINE 50ML 50 ML IV SCH (20:53)
[2020-07-07 23:00] VITALS: BP 160/83
[2020-07-08 03:00] VITALS: BP 152/85
[2020-07-08 05:31] LABS: BASO % 1 % (0-3); EOS # 0.1 x10^3/uL (0.0-0.7); EOS % 2 % (0-3); HEMATOCRIT 42.1 % (39.0-53.0); HEMOGLOBIN 14.4 g/dL (13.0-17.5); LYMPH # 1.6 x10^3/uL (1.0-4.8); LYMPH % 31 % (24-48); MEAN CORPUSCULAR HEMOGLOBIN 29 pg (25-35); MEAN CORPUSCULAR HGB CONC 34 g/dL (31-37); MEAN CORPUSCULAR VOLUME 84 fL (79-100); MONO # 0.4 x10^3/uL (0.0-1.1); MONO % 8 % (0-9); NEUT % 58 % (31-73); PLATELET COUNT 148 x10^3/uL (140-400); RED BLOOD COUNT 4.99 x10^6/uL (4.30-5.70); RED CELL DISTRIBUTION WIDTH 12.6 % (11.5-14.5); WHITE BLOOD COUNT 5.1 x10^3/uL (4.0-11.0)
[2020-07-08] MEDS: PIPERACILLIN/TAZOBACTAM 4.5 GM in IV NORMAL SALINE 100ML 100 ML IV SCH ×3 (05:38→17:47)
[2020-07-08] MEDS: oxyCODONE/APAP 5/325 1 TAB TABLET PO PRN ×2 (05:45→17:51)
[2020-07-08 07:00] VITALS: BP 165/89
[2020-07-08] MEDS: INSULIN LISPRO 300 UNITS/3 ML VIAL. SQ SCH ×3 (08:00→17:00)
[2020-07-08] MEDS: ASPIRIN ENTERIC COATED 325 MG TABLET.DR. PO SCH ×2 (08:49→19:59)
[2020-07-08] MEDS: CHOLECALCIFEROL (VITAMIN D3) 5,000 UNIT CAPSULE PO SCH (08:49)
[2020-07-08] MEDS: DOCUSATE SODIUM 100 MG CAPSULE. PO SCH (08:49)
[2020-07-08] MEDS: IV NORMAL SALINE 1000ML BAG 1,000 ML IV SCH ×2 (08:50→18:00)
--- NOTE | 2020-07-08 10:03 | PDOC ---
Infectious Disease Note Subjective Subjective Comfortable. denies F/C/N/V/D/muscle aches/SOA/rash. Vital Sign Vital Signs Vital Signs Date Time Temp Pulse Resp B/P (MAP) Pulse Ox O2 Delivery O2 Flow Rate FiO2 07/08/20 08:00 Room Air 07/08/20 07:00 97.8 65 18 165/89 (114) 97 97.8 Physical Exam PHYSICAL EXAM GENERAL: Propped up in bed, alert, in no distress. HEENT: Pupils equally round, normal conjunctivae not. Oropharynx pink and moist, no lesions seen. NECK: Supple. LUNGS: Clear to auscultation. HEART: Normal S1 and S2. ABDOMEN: Obese, soft, nontender with bowel sounds present. EXTREMITIES: No gross edema or cyanosis. Postop dressing, left foot in place, not taken down. SKIN: Warm to touch. No signs of rash. NEUROLOGIC: Alert and answering questions appropriate PIV incision is well approximated, no open wound or redness or drainage Labs Lab Laboratory Tests Test 07/07/20 10:44 07/07/20 16:30 07/07/20 20:09 07/08/20 04:50 Glucose (Fingerstick) 122 mg/dL (70-99) 117 mg/dL (70-99) 192 mg/dL (70-99) White Blood Count 5.1 x10^3/uL (4.0-11.0) Red Blood Count 4.99 x10^6/uL (4.30-5.70) Hemoglobin 14.4 g/dL (13.0-17.5) Hematocrit 42.1 % (39.0-53.0) Mean Corpuscular Volume 84 fL (79-100) Mean Corpuscular Hemoglobin 29 pg (25-35) Mean Corpuscular Hemoglobin Concent 34 g/dL (31-37) Red Cell Distribution Width 12.6 % (11.5-14.5) Platelet Count 148 x10^3/uL (140-400) Neutrophils (%) (Auto) 58 % (31-73) Lymphocytes (%) (Auto) 31 % (24-48) Monocytes (%) (Auto) 8 % (0-9) Eosinophils (%) (Auto) 2 % (0-3) Basophils (%) (Auto) 1 % (0-3) Neutrophils # (Auto) 3.0 x10^3/uL (1.8-7.7) Lymphocytes # (Auto) 1.6 x10^3/uL (1.0-4.8) Monocytes # (Auto) 0.4 x10^3/uL (0.0-1.1) Eosinophils # (Auto) 0.1 x10^3/uL (0.0-0.7) Basophils # (Auto) 0.0 x10^3/uL (0.0-0.2) C-Reactive Protein, Quantitative 10.4 mg/L (0-3.3) Test 07/08/20 07:24 Glucose (Fingerstick) 102 mg/dL (70-99) Micro Microbiology 07/06/20 Gram Stain - Final, Resulted 07/06/20 Aerobic and Anaerobic Culture - Preliminary, Resulted Objective Assessment Diabetic ulcer, left second toe with exposed bone, status post closed amputation on 07/06/2020. Group G strep so far. Charcot foot. Peripheral neuropathy. History of MRSA. Plan Plan of Care Daptomycin and Zosyn. change to po keflex Monitor laboratory values and temperature. Follow up on cultures. x ray from [place] , might be over read, ? charcots deformity, pt refused for further amputation , now clinically does not appear to have deeper infection, this was discussed with pt in detail, may consider MRI out pt , he said he might go for it through PMD ok to d/c on po keflex f/u with Dr Vaughn if needed will be happy to see RIGO SHOEMAKER MD Jul 08, 2020 10:03
--- NOTE | 2020-07-08 10:35 | PDOC ---
[employer] PROGRESS NOTE Date of Service DOS: DATE: 07/08/20 TIME: 10:34 Chief Complaint Chief Complaint ASSESSMENT Peripheral vascular disease with diabetic toe. DIABETES A1C // 6.4 1-21 OSTEOMYELITIS prior left great toe amputation and prior right foot transmetatarsal amputation. bilateral lower extremity neuropathy which predates the diagnosis of diabetes plan left second toe, Amputation, toe; metatarsophalangeal joint ID CONSULT consulted Dr. Vaughn. IV antibiotics, wound care, home meds, DVT prophylaxis. Full code. P.r.n. pain meds, IV fluids, p.r.n. morphine, sliding scale insulin. singh-19 screen P.r.n. Zofran. a1c ID CONSULT Change to Dapto and Zosyn. H/o MRSA review labs and cults and response. Blood cults at [facility] ANAEROBIC-AEROBIC CULTURE Preliminary Preliminary FEW GRAM POSITIVE COCCI on 07/07/20 at 0846 FINAL ID= [BETA STREP GROUP G] History of Present Illness History of Present Illness 07/08, today, new left arm swollen, hx DVT, req therapy, provoked, will US, PT and OT to cont. still having pain and weaknss, difficulty to ambulate DC home soon H ISTORY OF PRESENT ILLNESS: The patient is a pleasant 59-year-old male who has severe peripheral vascular disease secondary to severe diabetes. Basically, he has already had a transmetatarsal on the right, now the left foot is infected. He had a first toe that was amputated on the left and they also did a metatarsal amputation, but now the second toe has been pointing down and rubbing on the ground, so he has developed some severe infection there. It is rated at 7/10. He has associated weakness. It has been coming on for several weeks to months, worse with moving, better with sitting still, described as very irritating. admitted the patient and consult Orthopedics. PAST MEDICAL HISTORY: Right transmetatarsal amputation, left first toe amputation, left first metatarsal amputation, diabetes, hypertension, hyperlipidemia, arthroscopy, depression and anxiety, muscle spasms. ALLERGIES: None. FAMILY HISTORY: Diabetes and hypertension. SOCIAL HISTORY: He does not drink, smoke or take drugs. MEDICATIONS: Reviewed. He is on meloxicam and Lyrica. REVIEW OF SYSTEMS: GENERAL: No history of weight change, weakness or fevers. SKIN: No bruising, hair changes or rashes. EYES: No blurred, double or loss of vision. NOSE AND THROAT: No history of nosebleeds, hoarseness or sore throat. HEART: No history of palpitations, chest pain or shortness of breath on exertion. LUNGS: Denies cough, hemoptysis, wheezing or shortness of breath. GASTROINTESTINAL: Denies changes in appetite, nausea, vomiting, diarrhea or constipation. GENITOURINARY: No history of frequency, urgency, hesitancy or nocturia. NEUROLOGIC: Denies history of numbness, tingling, tremor or weakness. PSYCHIATRIC: No history of panic, anxiety or depression. ENDOCRINE: No history of heat or cold intolerance, polyuria or polydipsia. EXTREMITIES: He complains of left foot toe infection. 07/07 PAIN BETTER, appetite good, cont iv antibiotics D/W RN Vitals/I&O Vitals/I&O: Vital Signs Date Time Temp Pulse Resp B/P (MAP) Pulse Ox O2 Delivery O2 Flow Rate FiO2 07/08/20 09:59 Room Air 07/08/20 07:00 97.8 65 18 165/89 (114) 97 97.8 I & O 07/07/20 07/07/20 07/08/20 15:00 23:00 07:00 Intake Total 200 ml Output Total 715 ml 1125 ml 750 ml Balance -715 ml -925 ml -750 ml Physical Exam Physical Exam: GENERAL: Propped up in bed, alert, in no distress. HEENT: Pupils equally round, normal conjunctivae not. Oropharynx pink and moist, no lesions seen. NECK: Supple. LUNGS: Clear to auscultation. HEART: Normal S1 and S2. ABDOMEN: Obese, soft, nontender with bowel sounds present. EXTREMITIES: No gross edema or cyanosis. Postop dressing, left foot in place, not taken down. SKIN: Warm to touch. No signs of rash. NEUROLOGIC: Alert and answering questions appropriate PIV incision is well approximated, no open wound or redness or drainage General: Alert, Oriented X3, Cooperative, No acute distress Heart: Regular rate, Normal S1, Normal S2 Lungs: Clear Abdomen: Normal bowel sounds, Soft, No tenderness, No hepatosplenomegaly Extremities: No cyanosis, Other Labs Labs: Laboratory Tests Test 07/07/20 10:44 07/07/20 16:30 07/07/20 20:09 07/08/20 04:50 Glucose (Fingerstick) 122 mg/dL (70-99) 117 mg/dL (70-99) 192 mg/dL (70-99) White Blood Count 5.1 x10^3/uL (4.0-11.0) Red Blood Count 4.99 x10^6/uL (4.30-5.70) Hemoglobin 14.4 g/dL (13.0-17.5) Hematocrit 42.1 % (39.0-53.0) Mean Corpuscular Volume 84 fL (79-100) Mean Corpuscular Hemoglobin 29 pg (25-35) Mean Corpuscular Hemoglobin Concent 34 g/dL (31-37) Red Cell Distribution Width 12.6 % (11.5-14.5) Platelet Count 148 x10^3/uL (140-400) Neutrophils (%) (Auto) 58 % (31-73) Lymphocytes (%) (Auto) 31 % (24-48) Monocytes (%) (Auto) 8 % (0-9) Eosinophils (%) (Auto) 2 % (0-3) Basophils (%) (Auto) 1 % (0-3) Neutrophils # (Auto) 3.0 x10^3/uL (1.8-7.7) Lymphocytes # (Auto) 1.6 x10^3/uL (1.0-4.8) Monocytes # (Auto) 0.4 x10^3/uL (0.0-1.1) Eosinophils # (Auto) 0.1 x10^3/uL (0.0-0.7) Basophils # (Auto) 0.0 x10^3/uL (0.0-0.2) C-Reactive Protein, Quantitative 10.4 mg/L (0-3.3) Test 07/08/20 07:24 Glucose (Fingerstick) 102 mg/dL (70-99) Review of Systems Review of Systems: arm pain, swelling, no stool Comment Review of Relevant I have reviewed the following items kathy (where applicable) has been applied. Medications: Current Medications Medications (Trade) Dose Ordered Sig/Jose Route PRN Reason Start Time Stop Time Status Last Admin Dose Admin Docusate Sodium (Colace) 100 mg DAILY PO 07/07/20 15:00 07/08/20 08:49 Justifications for Admission Other Justification ROLAND ARELLANO MD Jul 08, 2020 10:35
[2020-07-08] MEDS ORDERED: MAGNESIUM HYDROXIDE 2,400 MG/30 ML ORAL.SUSP. PO PRN (10:45)
[2020-07-08 11:00] VITALS: BP 153/100
--- NOTE | 2020-07-08 11:31 | RAD ---
EXAM: Left upper extremity venous Doppler sonogram. HISTORY: Pain and swelling. TECHNIQUE: Verma scale and color Doppler sonographic evaluation of the left upper extremity veins with spectral waveform analysis was performed. FINDINGS: There is normal color flow, normal compressibility and there are normal spectral waveforms in the left upper extremity veins. IMPRESSION: No Doppler evidence of lower extremity deep venous thrombosis. Electronically signed by: Carmita Wetzel MD (07/08/2020 11:29 AM) [id number]
[2020-07-08] MEDS: ENOXAPARIN 40 MG/0.4 ML SYRINGE. SQ SCH (12:36)
[2020-07-08] MEDS: POLYETHYLENE GLYCOL 3350 17 GM PACKET. PO SCH (12:36)
--- NOTE | 2020-07-08 13:26 | NUR ---
SW following. Discussed with RN, pt from home, room air, ada diet, COVID-19 negative. Pt had surgery 07/06/20. Pt needing a (tall) walker. ADRIANNA spoke with pt, he does not have a preference of provider, and understand the tall walkers can sometimes be hard to find. Pt also needing a shower chair, these are not covered by insurance. Pt provided contact information for SW to reach out to Sister Rani Reyes to determine if there was any assistance he could get through the [facility]. [facility]. Miguel is seeing how long it would take to get in stock, and voicemail left for [employer]. ADRIANNA will continue to follow. Addendum: 07/08/20 at 1602 by RO RODAS [employer] does have a tall walker in stock, clinicals and script faxed to [employer]. Awaiting confirmation. Talha Aguilar RN met with pt to discuss home health. Pt agreeable to Talha. Pt reported to Lauren that he will call Sister Rani, and SW does not need to. ADRIANNA will continue to follow.
[2020-07-08 15:00] VITALS: BP 149/91
[2020-07-08 19:00] VITALS: BP 138/77
[2020-07-08] MEDS: LACTOBACILLUS RHAMNOSUS GG 1 CAPSULE. PO SCH (19:59)
[2020-07-08] MEDS: DAPTOmycin (GENERIC) IVPB 570 MG in IV NORMAL SALINE 50ML 50 ML IV SCH (20:01)
[2020-07-08 23:00] VITALS: BP 145/82
[2020-07-09] MEDS: PIPERACILLIN/TAZOBACTAM 4.5 GM in IV NORMAL SALINE 100ML 100 ML IV SCH ×3 (00:10→11:43)
[2020-07-09 03:00] VITALS: BP 146/83
[2020-07-09] MEDS: IV NORMAL SALINE 1000ML BAG 1,000 ML IV SCH (04:00)
[2020-07-09 07:00] VITALS: BP 158/78
[2020-07-09] MEDS: INSULIN LISPRO 300 UNITS/3 ML VIAL. SQ SCH ×2 (08:00→12:00)
[2020-07-09] MEDS: DOCUSATE SODIUM 100 MG CAPSULE. PO SCH (08:15)
[2020-07-09] MEDS: ASPIRIN ENTERIC COATED 325 MG TABLET.DR. PO SCH (08:15)
[2020-07-09] MEDS: LACTOBACILLUS RHAMNOSUS GG 1 CAPSULE. PO SCH (08:15)
[2020-07-09] MEDS: POLYETHYLENE GLYCOL 3350 17 GM PACKET. PO SCH (08:15)
[2020-07-09] MEDS: CHOLECALCIFEROL (VITAMIN D3) 5,000 UNIT CAPSULE PO SCH (08:16)
[2020-07-09] MEDS: oxyCODONE/APAP 5/325 1 TAB TABLET PO PRN (08:21)
--- NOTE | 2020-07-09 09:20 | PDOC ---
Infectious Disease Note Subjective Subjective Comfortable. denies F/C/N/V/D/muscle aches/SOA/rash. Vital Sign Vital Signs Vital Signs Date Time Temp Pulse Resp B/P (MAP) Pulse Ox O2 Delivery O2 Flow Rate FiO2 07/09/20 08:21 Room Air 07/09/20 07:00 98.1 60 18 158/78 (104) 93 98.1 Physical Exam PHYSICAL EXAM GENERAL: Propped up in bed, alert, in no distress. HEENT: Pupils equally round, normal conjunctivae not. Oropharynx pink and moist, no lesions seen. NECK: Supple. LUNGS: Clear to auscultation. HEART: Normal S1 and S2. ABDOMEN: Obese, soft, nontender with bowel sounds present. EXTREMITIES: No gross edema or cyanosis. Postop dressing, left foot in place, not taken down. SKIN: Warm to touch. No signs of rash. NEUROLOGIC: Alert and answering questions appropriate PIV incision is well approximated, no open wound or redness or drainage Labs Lab Laboratory Tests Test 07/08/20 11:56 07/08/20 17:29 07/08/20 20:33 07/09/20 07:13 Glucose (Fingerstick) 138 mg/dL (70-99) 151 mg/dL (70-99) 207 mg/dL (70-99) 140 mg/dL (70-99) Micro Microbiology 07/06/20 Gram Stain - Final, Resulted 07/06/20 Aerobic and Anaerobic Culture - Preliminary, Resulted Objective Assessment Diabetic ulcer, left second toe with exposed bone, status post closed amputation on 07/06/2020. Group G strep so far. Charcot foot. Peripheral neuropathy. History of MRSA. Plan Plan of Care po keflex Monitor laboratory values and temperature. Follow up on cultures. x ray from [facility] , might be over read, ? charcots deformity, pt refused for further amputation , now clinically does not appear to have deeper infection, this was discussed with pt in detail, may consider MRI out pt , he said he will go for it through PMD ok to d/c on po keflex f/u with Dr Vaughn if needed will be happy to see RIGO SHOEMAKER MD Jul 09, 2020 09:20
[2020-07-09 11:00] VITALS: BP 148/85
--- NOTE | 2020-07-09 11:18 | NUR ---
SW following. Discussed with RN. Discharge order for pt to discharge home with home health. Talha Aguilar RN notified. [employer] dropped off wheelchair - provided to patient. SW will continue to follow.
[2020-07-09] MEDS: ENOXAPARIN 40 MG/0.4 ML SYRINGE. SQ SCH (11:44)
[2020-07-09] MEDS ORDERED: POLY17PO52 PO (12:08)
[2020-07-09] MEDS ORDERED: OXYC1TAB15 PO (12:08)
[2020-07-09] MEDS ORDERED: CEPH750C9 PO (12:11)
--- NOTE | 2020-07-09 12:13 | SNU/HH DC ---
DISCHARGE WITH HOME HEALTH DISCHARGE INFORMATION: Discharge Date: Jul 09, 2020 Final Diagnosis: osteomyelitis toe Condition on Discharge: Stable CODE STATUS: Code Status: Full HOME HEALTH: Face to Face: I certify this patient is under my care and that I, had a face to face encounter that meets the physician face to face encounter requirements with this patient on 07/09/20 Medical Complications: Other (toe infection, amputation, ) Senior Care For: Admin/Educate Injections, Assess & Educate Safety, Assess/Skilled Observatio RN For Eval/Treatment: Yes Physical Therapy For: Evalulation/Treatment Occupational Therapy For: Evaluation/Treatment Pt Meets Homebound Status: Unsteady balance w/ amb,, Limited distance walking POST DISCHARGE ORDERS: Activity Instructions for Disc: Activity as tolerated Weight Bearing Status after Di: As tolerated Bathing Instructions: Shower-keep dressing dry, No Tub Bath until see Wound/Incision Care: Change dressing FOLLOW-UP: Follow up with: Dr. Vaughn 10 days TREATMENT/EQUIPMENT ORDERS: Adaptive Equipment Issued: Front wheeled walker (extra tall) CERTIFICATION STATEMENT: Certification Statement: Certification Statement: Based on the above finding, I certify that this patient is confined to the home and needs intermittent long term care, physical therapy and/or speech therapy, or continues to need occupational therapy.~ This patient is under my care, and I have initiated the establishment of the plan of care.~ This patient will be followed by myself or a community physician who will periodically review the plan of care. Home Meds Active Scripts Cephalexin (KEFLEX) 750 Mg Capsule, 1 CAP PO TID for toe infection for 10 Days, #30 CAP 0 Refills Prov:ROLAND ARELLANO MD 07/09/20 Oxycodone/Apap 5-325 (PERCOCET 5-325 MG TABLET ) 1 Each Tablet, 1 TAB PO PRN Q4HRS PRN for MODERATE PAIN, #30 TAB Prov:ROLAND ARELLANO MD 07/09/20 Polyethylene Glycol 3350 (POLYETHYLENE GLYCOL 3350) 17 Gm Powd.pack, 17 GM PO DAILY for prevent constipation, #30 PKT Prov:ROLAND ARELLANO MD 07/09/20 Reported Medications Pregabalin (LYRICA) 200 Mg Capsule, 1 CAP PO BID for anxiety, #60 CAP 07/05/20 Meloxicam (MELOXICAM) 7.5 Mg Tablet, 1 TAB PO DAILY for pain for 30 Days, #30 TAB 0 Refills 07/05/20 ROLAND ARELLANO MD Jul 09, 2020 12:13
--- NOTE | 2020-07-09 12:30 | PDOC3 ---
Discharge Summary Visit Information Date of Admission: Jul 04, 2020 Date of Discharge: Jul 09, 2020 Final Diagnosis Peripheral vascular disease with diabetic toe. DIABETES A1C 6.4 1-21 OSTEOMYELITIS prior left great toe amputation and prior right foot transmetatarsal amputation. bilateral lower extremity neuropathy which predates the diagnosis of diabetes Brief Hospital Course Allergies Allergies Coded Allergies Type Severity Reaction Last Updated Verified No Known Drug Allergies 05/03/19 No Vital Signs Vital Signs Date Time Temp Pulse Resp B/P (MAP) Pulse Ox O2 Delivery O2 Flow Rate FiO2 07/09/20 11:00 98.0 67 18 148/85 (106) 92 Room Air 98.0 Lab Results Laboratory Tests Test 07/07/20 16:30 07/07/20 20:09 07/08/20 04:50 07/08/20 07:24 Glucose (Fingerstick) 117 mg/dL (70-99) 192 mg/dL (70-99) 102 mg/dL (70-99) White Blood Count 5.1 x10^3/uL (4.0-11.0) Red Blood Count 4.99 x10^6/uL (4.30-5.70) Hemoglobin 14.4 g/dL (13.0-17.5) Hematocrit 42.1 % (39.0-53.0) Mean Corpuscular Volume 84 fL (79-100) Mean Corpuscular Hemoglobin 29 pg (25-35) Mean Corpuscular Hemoglobin Concent 34 g/dL (31-37) Red Cell Distribution Width 12.6 % (11.5-14.5) Platelet Count 148 x10^3/uL (140-400) Neutrophils (%) (Auto) 58 % (31-73) Lymphocytes (%) (Auto) 31 % (24-48) Monocytes (%) (Auto) 8 % (0-9) Eosinophils (%) (Auto) 2 % (0-3) Basophils (%) (Auto) 1 % (0-3) Neutrophils # (Auto) 3.0 x10^3/uL (1.8-7.7) Lymphocytes # (Auto) 1.6 x10^3/uL (1.0-4.8) Monocytes # (Auto) 0.4 x10^3/uL (0.0-1.1) Eosinophils # (Auto) 0.1 x10^3/uL (0.0-0.7) Basophils # (Auto) 0.0 x10^3/uL (0.0-0.2) C-Reactive Protein, Quantitative 10.4 mg/L (0-3.3) Test 07/08/20 11:56 07/08/20 17:29 07/08/20 20:33 07/09/20 07:13 Glucose (Fingerstick) 138 mg/dL (70-99) 151 mg/dL (70-99) 207 mg/dL (70-99) 140 mg/dL (70-99) Test 07/09/20 12:12 Glucose (Fingerstick) 167 mg/dL (70-99) Laboratory Tests Test 07/08/20 17:29 07/08/20 20:33 07/09/20 07:13 07/09/20 12:12 Glucose (Fingerstick) 151 mg/dL (70-99) 207 mg/dL (70-99) 140 mg/dL (70-99) 167 mg/dL (70-99) Brief Hospital Course Mr. Pisano is a 59 old admi wih toe infection, osteo, surg done, left second toe, Amputation, toe; metatarsophalangeal joint ID CONSULT followed, dapto, then zosyn wound care, home meds, DVT prophylaxis. Full code. P.r.n. pain meds, IV fluids, p.r.n. morphine, sliding scale insulin. singh-19 screen P.r.n. Zofran. Change to Dapto and Zosyn. H/o MRSA review labs and cults and response. Discharge Information Condition at Discharge: Improved Follow Up: Weeks Disposition/Orders: D/C to Home w/ HH Scheduled Cephalexin (Keflex) 750 Mg Capsule, 1 CAP PO TID for toe infection for 10 Days, #30 Ref 0 Prescribed by: ROLAND ARELLANO on 07/09/20 1211 Meloxicam (Meloxicam) 7.5 Mg Tablet, 1 TAB PO DAILY for pain for 30 Days, #30 Ref 0 (Reported) Entered as Reported by: UVALDO HARRINGTON on 07/05/20627 Last Action: New Order on 07/05/20627 by UVALDO HARRINGTON Polyethylene Glycol 3350 (Polyethylene Glycol 3350) 17 Gm Powd.pack, 17 GM PO DAILY for prevent constipation, #30 Prescribed by: ROLAND ARELLANO on 07/09/20 1208 Pregabalin (Lyrica) 200 Mg Capsule, 1 CAP PO BID for anxiety, #60 (Reported) Entered as Reported by: UVALDO HARRINGTON on 07/05/20627 Last Action: New Order on 07/05/20627 by UVALDO HARRINGTON Scheduled PRN Oxycodone/Apap 5-325 (Percocet 5-325 Mg Tablet ) 1 Each Tablet, 1 TAB PO PRN Q4HRS PRN for MODERATE PAIN, #30 Prescribed by: ROLAND ARELLANO on 07/09/20 1209 Patient Instructions Patient Instructions > 30 min face to face Justicifation of Admission Dx: Justifications for Admission: Justification of Admission Dx: Yes Cellulitis: Cellulitis ROLAND ARELLANO MD Jul 09, 2020 12:30
--- NOTE | 2020-07-09 13:47 | NUR ---
PT DISCHARGED HOME WITH HH. DISCHARGE INSTRUCTIONS AND PRESCRIPTIONS DISCUSSED. PT VERBALIZED UNDERSTANDING. IV REMOVED. PT ASSISTED TO WHEELCHAIR AND WAS SECURED IN CAR WITH FRIEND.
== END 2020-07-09 13:15 | disposition home health service (06) | DRG 617 ==
LOC: 4 NORTH 20:20
PROVIDERS: ADMIT Internal Medicine; ATTEND Internal Medicine
PROC: 0Y6S0Z0 Detachment at Left 2nd Toe, Complete, Open Approach (ICD-10-PCS; principal; 2020-07-06 08:00)
DX: E11.69 Type 2 diabetes mellitus with other specified complication (principal); M86.172 Other acute osteomyelitis, left ankle and foot; E11.52 Type 2 diabetes mellitus with diabetic peripheral angiopathy with gangrene; Z20.822 Contact with and (suspected) exposure to COVID-19; S91.105A Unspecified open wound of left lesser toe(s) without damage to nail, initial encounter; L97.529 Non-pressure chronic ulcer of other part of left foot with unspecified severity; E11.621 Type 2 diabetes mellitus with foot ulcer; E11.610 Type 2 diabetes mellitus with diabetic neuropathic arthropathy; E11.41 Type 2 diabetes mellitus with diabetic mononeuropathy; E78.5 Hyperlipidemia, unspecified; I10 Essential (primary) hypertension; F32.9 Major depressive disorder, single episode, unspecified; F41.9 Anxiety disorder, unspecified; M62.838 Other muscle spasm; E66.9 Obesity, unspecified; X58.XXXA Exposure to other specified factors, initial encounter; Z98.1 Arthrodesis status; Z89.431 Acquired absence of right foot; Z89.412 Acquired absence of left great toe; Z86.718 Personal history of other venous thrombosis and embolism; Z86.14 Personal history of Methicillin resistant Staphylococcus aureus infection; Z83.3 Family history of diabetes mellitus; Z82.49 Family history of ischemic heart disease and other diseases of the circulatory system; Z83.49 Family history of other endocrine, nutritional and metabolic diseases; Y93.89 Activity, other specified; Y92.89 Other specified places as the place of occurrence of the external cause; Y99.8 Other external cause status; Z68.32 Body mass index [BMI] 32.0-32.9, adult
CPT/HCPCS: 36415; 80048; 82962; 83036; 85025; 86140; 87071; 87075; 87426; 93971; A4222; A4930; A6253; A6402; A6449; J0690; J0878; J1100; J1650; J1815; J2270; J2405; J2543; J2704; J3010; J3490; J7030; U0003; 97116-GP; G0378

== ENCOUNTER → 2020-10-01 | Outpatient (CLI) | payer MEDICARE, MEDICAID ==
[~2020-10-01] MED LIST changes: +CEPH750C9 PO; +GADOTERATE 5 MMOL/10ML VIAL. IVP ONE; +GADOTERATE 7.5 MMOL/15ML VIAL. IVP ONE; +MELO7.5T29 PO; +OXYC1TAB15 PO; +POLY17PO52 PO; +PREG200C PO
--- NOTE | 2020-10-01 13:43 | RAD ---
EXAMINATION: Magnetic resonance imaging (MRI) of the lumbar spine with and without contrast 10/01/2020 9:34 AM HISTORY: Low back pain. TECHNIQUE: Multiplanar multi-weighted MRI of the lumbar spine was performed with and without intraven ous contrast using the standard lumbar spine protocol. Contrast information: Gadolinium-based contrast. COMPARISON: None available. FINDINGS: There is minimal retrolisthesis of L2 on L3. Superior and inferior endplate Schmorl's nodes are iden tified at L1 resulting in a 25 % height loss. No acute fracture. There are no compression fractures. The conus medullaris terminates at the level of L1. The distal spinal cord signal intensity is yariel l. There is interbody fusion at L4-L5 and L5-S1 with complete incorporation. Bilateral posterior fus ion identified from L4 through S1. Limited views of the abdomen and pelvis show no soft tissue abnorm ality. The aorta is normal. No suspicious enhancement is identified. L2-L3: There is a circumferential disc bulge. Mild facet arthropathy. Moderate left and mild right ne uroforaminal stenosis. Mild spinal canal stenosis. L3-L4: There is a circumferential disc bulge asymmetric to the right with central disc protrusion. Th ere is mild to moderate facet arthropathy. Severe right and moderate left neuroforaminal stenosis. Mo derate spinal canal stenosis, exacerbated by epidural lipomatosis. L4-L5: This level is fused and decompressed by partial laminectomy. No residual neuroforaminal or spi nal canal stenosis. L5-S1: This level is fused and decompressed the partial laminectomy. No residual neuroforaminal or sp inal canal stenosis. IMPRESSION: 1. Posterior and interbody fusion identified from L4 through S1 without evidence for hardware failure . Mild transitional level disease identified at L3-L4 with neuroforaminal and spinal canal stenosis a s detailed above. Electronically signed by: Liana Escobar MD (10/01/2020 12:21 PM) [id number]
== END ==
LOC: MRI 09:33
PROVIDERS: ATTEND Family Medicine
DX: M47.816 Spondylosis without myelopathy or radiculopathy, lumbar region (principal); M43.27 Fusion of spine, lumbosacral region; M48.061 Spinal stenosis, lumbar region without neurogenic claudication; M25.552 Pain in left hip; G89.29 Other chronic pain; M54.42 Lumbago with sciatica, left side
CPT/HCPCS: 72158; A9575